=== PATIENT | male | born 1980 | race Caucasian/White ===

== ENCOUNTER 2021-07-03 20:11 | Emergency (ER) | payer SELFPAY ==
--- NOTE | ~2021-07-03 | XR_ITS ---
EXAMINATION: XR chest 1V portable DATE: 07/03/2021 21:47 INDICATION: Left chest pain. TECHNIQUE: A single frontal view of the chest was obtained. COMPARISON: None. FINDINGS: The chest demonstrates clear lungs without pneumonia, pleural effusion, or pneumothorax. Th e heart size is normal. IMPRESSION: 1. No acute cardiopulmonary disease. Reviewed, dictated and finalized at location A. NING ASSOCIATE
--- NOTE | ~2021-07-03 | CT_ITS ---
EXAMINATION: CT cervical spine wo con DATE: 07/03/2021 21:48 INDICATION: Left neck pain radiating to the arm. TECHNIQUE: Computed tomography (CT) of the cervical spine was performed without intravenous contrast. Automated exposure control and iterative reconstruction technique were employed. The dose-length pro duct was 507.44 mGy-cm. COMPARISON: None FINDINGS: There is 9 degrees levocurvature of cervicothoracic spine. There is kyphosis of lower cervi js spine. Vertebral body heights are normal. There is moderately decreased disc height at C4-C5 and C6-C7 and mildly decreased disc height at C5-C6. The following disc levels are specifically discussed : C2-C3: There is mild bilateral uncovertebral joint osteoarthritis. There is mild left facet joint ost eoarthritis. There is no neural foraminal stenosis. There is no central canal stenosis. C3-C4: There is mild bilateral uncovertebral joint osteoarthritis. There is no facet joint osteoarthr itis. There is no neural foraminal stenosis. There is mild central canal stenosis. C4-C5: There is moderate right and mild left uncovertebral joint osteoarthritis. There is mild bilate ral facet joint osteoarthritis. There is no neural foraminal stenosis. There is mild central canal st enosis. C5-C6: There is severe bilateral uncovertebral joint osteoarthritis. There is no facet joint osteoart hritis. There is mild right neural foraminal stenosis. There is mild central canal stenosis. C6-C7: There is no uncovertebral joint osteoarthritis. There is mild right facet joint osteoarthritis . There is no neural foraminal stenosis. There is mild central canal stenosis. C7-T1: There is no uncovertebral joint osteoarthritis. There is severe right and mild left facet join t osteoarthritis. There is no neural foraminal stenosis. There is no central canal stenosis. IMPRESSION: 1. No fracture. 2. Moderate cervical spondylosis. Reviewed, dictated and finalized at location A. LAR SENIOR CARE PROVIDER
[2021-07-03 20:20] VITALS: BP 174/146; PULSE 86; RESP 20; TEMP 36.2; O2SAT 98
--- NOTE | 2021-07-03 20:44 | ECG_ITS ---
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
[2021-07-03 21:06] LABS: Hematocrit 49.2 % (40.0-54.0); Hemoglobin 16.2 g/dL (14.0-18.0); Mean Corpuscular HGB Conc 32.9 g/dL (32.0-36.0); Mean Corpuscular Hemoglobin 29.3 pg (27.0-31.0); Mean Platelet Volume 10.1 fl (8.7-11.0); Platelet Count Result 328 K/mm3 (150-420); Red Blood Count 5.53 M/mm3 (4.70-6.10); Red Cell Distribution Width 13.4 % (11.6-14.4); White Blood Count 14.2 K/mm3 (4.8-10.8)
[2021-07-03] MEDS: cloNIDine HCL 0.2 MG TABLET PO ×2 (21:13→21:56)
[2021-07-03] MEDS: KETOROLAC (*BKC) 60 MG/2 ML VIAL IM (21:14)
[2021-07-03] MEDS: Please add drug allergy info to patient profile. 1 EACH XX (21:14)
[2021-07-03 21:16] LABS: Atypical Lymphocytes Present; Band Neutrophils Percent 0 % (0-6); Basophils Absolute Manual 0.14 K/mm3 (0-0.1); Basophils Percent Manual 1 % (0-1); Eosinophils Percent Manual 0 % (1-6); Lymphocytes Absolute Manual 5.25 K/mm3 (1.1-4.5); Lymphocytes Percent Manual 37 % (18-44); Monocytes Absolute Manual 0.42 K/mm3 (0.1-0.90); Monocytes Percent Manual 3 % (3-9); Neutrophils Absolute Manual 8.37 K/mm3 (1.3-6.7); Neutrophils Percent Manual 59 % (46-73); Platelet Estimate Adequate (Adequate); Total Cells Counted 100
[2021-07-03] MEDS: SODIUM CHLORIDE 0.9% IV 500 ML 999 ML IV CONT (21:16)
[2021-07-03 21:23] LABS: Alanine Aminotransferase 30 U/L (16-63); Alkaline Phosphatase 84 U/L (46-116); Anion Gap 14 mmol/L (8-16); Aspartate Amino Transferase 11 U/L (15-37); Bilirubin,Total 0.3 mg/dL (0.00-1.00); Blood Urea Nitrogen 17 mg/dL (7-18); Calcium 9.5 mg/dL (8.5-10.1); Carbon Dioxide 24 mmol/L (21-32); Chloride 100 mmol/L (98-108); Estimated Glomerular Filt Rate > 60; Glucose 119 mg/dL (70-99); Osmolality Calculated 288 mOsm/kg (285-295); Potassium 3.9 mmol/L (3.5-5.1); Sodium 138 mmol/L (136-145); Total Protein 8.1 g/dL (6.4-8.2); Troponin I 8.1 ng/L (0.00-60.4)
[2021-07-03 21:26] LABS: Lactic Acid Reflex 0.7 mmol/L (0.4-2.0)
--- NOTE | 2021-07-03 21:36 | PC.NURSE ---
Pt. to X-Ray at this time. Pt. reports some pain relife. Pt to X-ray via w/c.
--- NOTE | 2021-07-03 21:48 | ED.UPPEXIN ---
HPI - Extremity Injury (Upper) General Chief Complaint: Extremity Injury, Upper Stated Complaint: possible pinched nerve Time Seen by Provider: 07/03/21 20:15 Source: patient and RN notes reviewed Mode of arrival: ambulatory Limitations: no limitations History of Present Illness complaint: injury to: right and shoulder Other injuries: none Place: work Severity: moderate Severity scale (1-10): 8 Relieving factors: medication Exacerbating factors: movement of extremity Context: other (chronic neck to left shoulder pain x 1 mos, made worse by increased left upper limb activity x 3 days. ) Treatments prior to arrival: NSAIDS Related Data Home Medications Medication Instructions Recorded Confirmed No Home Medications 07/03/21 07/03/21 Allergies Allergy/AdvReac Type Severity Reaction Status Date / Time No Known Allergies Allergy Verified 07/03/21 21:08 Review of Systems Review of Systems: All systems reviewed & are unremarkable except as noted in HPI and below PMFSH Past Medical History Medical History Cervical radiculopathy, chronic Hypertension Exam Const: General: no acute distress and alert Orientation/consciousness: patient oriented x3 Limitations: no limitations HENMT: Head: normal to inspection Ears: external ears normal, TM's normal bilaterally and EAC's normal General nose exam: Normal external nose present and Normal nares present Face and sinus: normal facial exam and sinuses nontender Mouth: Yes lip normal and Yes moist mucous membranes Throat: posterior oropharynx normal Eyes: Conjunctivae: conjunctivae normal Pupils: Equal, round and reactive pupils present Neck: Neck: normal visual inspection and no lymphadenopathy Other: no acute neck tenderness. pt had pain on moving the left UL but had no acute left shoulder or left UL tenderness, redness or deformity. no acute neurovascular deficit. Chest: Chest palpation & inspection: normal inspection of the chest Resp: Effort & Inspection: normal respiratory effort Auscultation: clear to auscultation bilaterally Cardio: Rate: regular rate Rhythm: regular rhythm GI: GI Palp: Yes Soft to palpation and No Tenderness to palpation present (GI) Auscultation: normal bowel sounds : General: Yes bladder normal to palpation and Yes no CVA tenderness Male General Exam: Yes normal external exam Back/Spine/Pelvis: Back: no CVA tenderness Skin: General skin exam: normal color Rashes: no rashes Neuro: General: patient oriented x3, moves all extremities, no meningeal signs, no focal motor deficits and CN's II-XI intact bilaterally Extrem: General: normal to inspection and no pedal edema Psych: Mental Status: mental status grossly normal Affect: Anxious affect present Attitude: cooperative Thought content: Yes Normal thought content present Course Course Emergency Course: Pt had elevated BP which moderated with Rx. Stable with less pain. Reevaluation(s) Reevaluation #1: VS improved. Date: 07/03/21 Time: 21:11 Vital Signs Vital signs: Vital Signs Temperature 36.2 C L 07/03/21 20:20 Pulse Rate 86 07/03/21 20:20 Respiratory Rate 20 07/03/21 20:20 Blood Pressure 174/146 H 07/03/21 20:20 Pulse Oximetry 98 07/03/21 20:20 Temperature 36.6 C 07/03/21 23:17 Pulse Rate 76 07/03/21 23:17 Respiratory Rate 20 07/03/21 23:17 Blood Pressure 174/146 H 07/03/21 20:20 Pulse Oximetry 96 07/03/21 23:17 MDM - Extremity Injury (Upper) Differential Diagnosis Differential diagnosis: Likely other (neck radiculopathy) Medical Records Attestation: I reviewed the patient's medical records. Lab Data Attestation: I reviewed the patient's lab results. Result diagrams: 07/03/21 21:02 07/03/21 21:02 Labs: Lab Results 07/03/21 07/03/21 07/03/21 Range/Units 21:02 21:02 21:02 WBC 14.2 H (4.8-10.8) K/mm3 RBC 5.53 (4.70-6.1
--- NOTE | 2021-07-03 22:52 | PC.NURSE ---
Pt. reports some relife 4 on a 1-10 scale.
[2021-07-03 23:17] VITALS: PULSE 76; RESP 20; TEMP 36.6; O2SAT 96
== END 2021-07-03 23:20 | disposition home or self-care (01) ==
PROVIDERS: Emergency Provider Emergency Medicine; PCP Family Medicine
DX: M54.12 Radiculopathy, cervical region (principal); I10 Essential (primary) hypertension
CPT/HCPCS: 36415; 71045; 72125; 80053; 83605; 84484; 85025; 93005; 96361; 96374; 99284; A9270; J1885; J7040

== ENCOUNTER 2021-07-04 13:36 | Emergency (ER) | payer SELFPAY ==
[2021-07-04 15:17] VITALS: BP 191/110; PULSE 72; RESP 16; TEMP 35.9; O2SAT 100
--- NOTE | 2021-07-04 15:27 | ED.EXTPRO ---
HPI - Extremity Problem General Chief complaint: Extremity Problem,Nontraumatic Stated complaint: L Shoulder pain/numbness in L hand Time Seen by Provider: 07/04/21 15:27 Source: patient Mode of arrival: ambulatory Limitations: no limitations History of Present Illness HPI Narrative: this is a 30-year-old gentleman that presents with some neck pain and radiation into his left shoulder with some tender and muscular spasm left cervical neck area has good range of motion no known injury has no nausea vomiting no chest pain no shortness of breath no fever chills. Currently no headaches no blurry vision. MD Complaint: extremity pain Onset (ago): day(s) Pain Consistency: constant Location: left Severity scale (1-10): 8 Quality: aching Radiation: other ( Cervical neck pain) Relieving factors: immobilization and medication Exacerbating factors: range of motion Associated symptoms: denies other symptoms Related Data Allergies Allergy/AdvReac Type Severity Reaction Status Date / Time No Known Allergies Allergy Verified 07/04/21 15:21 Review of Systems Review of Systems: All systems reviewed & are unremarkable except as noted in HPI and below PMFSH Past Medical History Medical History Cervical radiculopathy, chronic Hypertension Exam Const: General: no acute distress and alert Orientation/consciousness: patient oriented x3 HENMT: Head: normal to inspection Eyes: Conjunctivae: conjunctivae normal Pupils: Equal, round and reactive pupils present Neck: Other: Tender left paracervical tenderness with palpation Chest: Chest palpation & inspection: normal inspection of the chest Resp: Effort & Inspection: normal respiratory effort Auscultation: clear to auscultation bilaterally Cardio: Rate: regular rate Rhythm: regular rhythm GI: GI Palp: Yes Soft to palpation Percussion: Yes normal to percussion : Testes: Testes normal Urinary Catheter: Urinary Catheter: patent and draining Back/Spine/Pelvis: Back: no CVA tenderness Skin: General skin exam: normal color Rashes: no rashes Neuro: General: patient oriented x3, moves all extremities, no meningeal signs and no focal motor deficits Extrem: General: normal to inspection and no pedal edema Psych: Mental Status: mental status grossly normal Affect: normal affect Course Course Emergency Course: patient received IM Toradol along with some IM morphine a drain, blood pressure is elevated 191/110 will give the patient a dose of clonidine. Vital Signs Vital signs: Vital Signs Temperature 35.9 C L 07/04/21 15:17 Pulse Rate 72 07/04/21 15:17 Respiratory Rate 16 07/04/21 15:17 Blood Pressure 191/110 H 07/04/21 15:17 Pulse Oximetry 100 07/04/21 15:17 Temperature 35.9 C L 07/04/21 15:17 Pulse Rate 72 07/04/21 15:17 Respiratory Rate 16 07/04/21 15:17 Blood Pressure 191/110 H 07/04/21 15:17 Pulse Oximetry 100 07/04/21 15:17 Critical Care Time Critical Care Time Critical Care Time: No Discharge Plan Discharge Clinical Impression: Cervical radiculopathy, chronic Hypertension Qualifiers: Hypertension type: primary hypertension Qualified Code(s): I10 - Essential (primary) hypertension Patient Disposition: Home, Self-Care Condition: Stable Instructions: Antibiotic Form, Chronic Hypertension (ED), Cervical Radiculopathy (ED) Additional Instructions: take medicine as prescribed and follow-up with primary care physician for possible MRI of cervical spine. Prescriptions: New cyclobenzaprine 10 mg tablet 10 mg PO TID PRN (Reason: muscle spasm) Qty: 20 RF: 0 tramadol [Ultram] 50 mg tablet 50 mg PO Q6H PRN (Reason: pain) Qty: 20 RF: 0 No Action clonidine HCl 0.2 mg tablet 0.2 mg PO BID Qty: 20 RF: 0 ibuprofen 800 mg tablet 800 mg PO TID PRN (Reason: pain) Qty: 30 RF: 0 omeprazole magnesium [Prilosec OTC] 20 mg tablet,delayed rel
[2021-07-04] MEDS: ORPHENADRINE CITRATE 100 MG TABLET.ER PO (15:49)
[2021-07-04] MEDS: KETOROLAC (*BKC) 60 MG/2 ML VIAL IM (15:49)
[2021-07-04] MEDS: cloNIDine HCL 0.1 MG TABLET PO (15:49)
[2021-07-04 16:18] VITALS: BP 156/85; PULSE 78; RESP 20; TEMP 36.1; O2SAT 97
== END 2021-07-04 16:22 | disposition home or self-care (01) ==
PROVIDERS: Emergency Provider Emergency Medicine; PCP Family Medicine
DX: M54.12 Radiculopathy, cervical region (principal); I10 Essential (primary) hypertension
CPT/HCPCS: 96372; 99283; A9270; J1885

== ENCOUNTER 2024-09-14 13:06 | Emergency (ER) | payer BC, SELFPAY ==
--- NOTE | ~2024-09-14 | XR_ITS ---
XR chest 2V Ordering provider: French Matute MD History: 43 years Male with . INTERMITTENT CP X 2 WKS . Comparison: July 03, 2021 FINDINGS: MEDIASTINUM: The cardiac silhouette is not enlarged. LUNGS: No infiltrates, effusions or pneumothorax. OTHER: No free air under the diaphragm. Degenerative changes of the spine. IMPRESSION: No acute cardiopulmonary pathology. Reviewed, dictated and finalized at location A.
--- NOTE | 2024-09-14 13:07 | ECG_ITS ---
Test Date: 2024-09-14 13:20:18 Measurements Intervals [place] Rate: 75 P: 44 NE: 169 QRS: 35 QRSD: 121 T: 50 QT: 368 QTc: 412 Interpretive Statements SINUS RHYTHM INCOMPLETE RIGHT BUNDLE BRANCH BLOCK BORDERLINE ECG No previous ECG available for comparison Electronically Signed On 09-14-2024 13:23:15 CDT by Jimenez William D.O.
[2024-09-14 13:17] VITALS: BP 177/80; PULSE 77; RESP 18; TEMP 36.6; O2SAT 99
[2024-09-14 13:30] LABS: Basophils Absolute Auto 0.1 K/mm3 (0.0-0.1); Basophils Percent Auto 0.7 % (0.2-1.2); Eosinophils Absolute Auto 0.2 K/mm3 (0-0.3); Eosinophils Percent Auto 1.9 % (0-4.4); Hematocrit 44.3 % (42.0-52.0); Hemoglobin 14.4 g/dL (14.0-18.0); Immature Granulocyte Absolute 0.04 K/mm3 (0.00-0.031); Immature Granulocyte Percent A 0.3 % (0-0.5); Lymphocytes Absolute Auto 2.88 K/mm3 (0.9-3.2); Lymphocytes Percent Auto 24.6 % (18.3-44.2); Mean Corpuscular HGB Conc 32.5 g/dl (32-36); Mean Corpuscular Hemoglobin 28.6 pg (26-34); Mean Corpuscular Volume 87.9 fl (80-100); Monocytes Absolute Auto 0.8 K/mm3 (0.1-0.6); Monocytes Percent Auto 6.5 % (2.6-8.5); Neutrophils Absolute Auto 7.7 K/mm3 (1.3-6.7); Platelet Count Result 291 k/mm3 (150-375); Red Blood Count 5.04 M/mm3 (4.6-6.20); Red Cell Distribution Width 13.2 % (11.5-14.5); White Blood Count 11.7 K/mm3 (4.5-10.0)
[2024-09-14 13:39] LABS: INR 0.9; Prothrombin Time 12.7 Seconds (11.1-14.7)
[2024-09-14 13:41] LABS: Partial Thromboplastin Time 25.4 Seconds (22.3-36.8)
[2024-09-14 13:44] LABS: Alanine Aminotransferase 45 U/L (6-50); Albumin Level 4.5 g/dL (3.5-5.1); Alkaline Phosphatase 105 U/L (38-126); Anion Gap 7 mmol/L (4-12); Aspartate Amino Transferase 36 U/L (17-59); Bilirubin,Total 0.5 mg/dL (0.2-1.3); Blood Urea Nitrogen 17 mg/dL (9-20); Carbon Dioxide 28 mmol/L (22-30); Chloride 101 mmol/L (98-107); Estimated CRCL calculation 156 ml/min; Estimated Glomerular Filt Rate > 60; Glucose 160 mg/dL (65-110); Lipase 33 U/L (23-300); Potassium 4.3 mmol/L (3.4-5.0); Sodium 136 mmol/L (137-145)
[2024-09-14 13:55] LABS: Troponin I < 0.012 ng/mL (0.000-0.034)
[2024-09-14 14:19] VITALS: BP 140/83; PULSE 86; RESP 18; O2SAT 100; O2SAT 99
[2024-09-14] MEDS: ASPIRIN 81 MG CHEWABLE TABLET 324 MG PO (14:47)
--- NOTE | 2024-09-14 14:50 | PC.NURSE ---
Patient states he has history of anxiety and states he is prescribed buspar to take daily, but has not been taking it as ordered.
--- NOTE | 2024-09-14 15:15 | PC.NURSE ---
Patient ambulated to the restroom with steady gate
--- NOTE | 2024-09-14 15:50 | ED.CHESTPAIN ---
HPI - Chest Pain General Chief Complaint: Chest Pain Stated Complaint: CP Time Seen by Provider: 09/14/24 14:47 History of Present Illness HPI narrative: 43-year-old male presenting to the emergency room with chief complaint of intermittent chest pain. He states he has severe anxiety and general anxiety I disorder, started on BuSpar recently by his primary care provider for this. Patient states that he intermittently gets chest pains and left side of his chest that radiated towards his arm. Family history of coronary disease in his father but no personal disease history. He has a history of hypertension as well. Was otherwise in his normal state of health, no associated shortness of breath, nausea vomiting, abdominal discomfort, neuropathy or weakness. Patient is very anxious in triage and pacing around the room. Related Data Allergies Allergy/AdvReac Type Severity Reaction Status Date / Time No Known Allergies Allergy Verified 09/14/24 14:46 Review of Systems Review of Systems: As [facility] Past Medical History Medical History Hypertension Cervical radiculopathy, chronic Exam Narrative: GENERAL: Well-appearing and not in any acute distress but is anxious and pacing in the room, fidgets quite a bit HEAD: [Normocephalic, atraumatic.] EYES: [PERRLA and EOMI.] ENT: Nares clear, no rhinorrhea or epistaxis. Mucous membranes moist. NECK: Supple. CHEST: [Clear to auscultation. No respiratory distress.] HEART: [Regular rate and rhythm]. No murmur heard. [Normal peripheral pulses.] ABDOMEN: [Soft, nondistended], [nontender], [No rigidity or guarding] EXTREMITIES: Normal range of motion. [No edema.] SKIN: Warm, dry, no rash. NEURO: [No focal deficits]. Alert and oriented [x3.] PSYCH: Fidgeting frequently throughout the examination, anxious and pacing in the room but not any acute distress or psychological decompensation Course Vital Signs Vital signs: Vital Signs Temperature 36.6 C 09/14/24 13:17 Pulse Rate 77 09/14/24 13:17 Respiratory Rate 18 09/14/24 13:17 Blood Pressure 177/80 H 09/14/24 13:17 Pulse Oximetry 99 09/14/24 13:17 Oxygen Delivery Room Air 09/14/24 13:17 Temperature 36.6 C 09/14/24 13:17 Pulse Rate 86 09/14/24 14:19 Respiratory Rate 18 09/14/24 14:19 Blood Pressure 140/83 09/14/24 14:19 Pulse Oximetry 99 09/14/24 14:19 Oxygen Delivery Room Air 09/14/24 14:19 MDM - Chest Pain MDM Narrative Medical decision making narrative: 43-year-old male with history of hypertension generalized anxiety disorder he presents with intermittent chest pain for about 1 week. He states that pain comes and goes without any precipitating factors, somewhat radiates towards his arm. He states he feels like his related to his anxiety. Recently started BuSpar by his primary care provider but has not had any effects yet according to him. Blood pressure in triage was mildly elevated but normalized in the room. No significant blood pressure concerns here is no tachycardia, fever, hypoxia. Normal clear breath sounds and strong symmetric pulses. No murmurs auscultated. He otherwise appears well but is anxious and frequently pacing around the room and not able to sit still. Denies any allergies or drug use. Suspicion presently is for potential anxiety induced chest discomfort, musculoskeletal chest pain, ACS on the differential but less likely and he has low heart score. Serial troponins were ordered, EKG, chest x-ray, BMP, CBC. Patient placed on satellite project site monitor and was re-evaluated. No current chest pain on my assessment. Workup shows a minor leukocytosis 11.7 but nonspecific. No anemia or platelet concerns. Normal electrolytes. Normal PT and PTT. Unremarkable LFTs, normal glucose and renal function. Negative initial troponin and 3 hour troponin. Negative lipase. Chest x-ray shows no acute cardiopulmonary disease. EKG shows sinus rhythm, no ST segment elevations, depressions or inversions. Incomplete right bundle-branch block seen and similar to prior EKG. Serial troponin is negative. He is stable for discharge home at this time for outpatient risk stratification with his primary care provider and referred to Cardiology. Medical Records Data Attestation: I reviewed the patient's medical records. Lab Data Attestation: I reviewed the patient's lab results. 09/14/24 13:24 09/14/24 13:24 Labs: Lab Results 09/14/24 09/14/24 Range/Units 13:24 15:48 WBC 11.7 H (4.5-10.0) K/mm3 RBC 5.04 (4.6-6.20) M/mm3 Hgb 14.4 (14.0-18.0) g/dL Hct 44.3 (42.0-52.0) % MCV 87.9 (80-100) fl MCH 28.6 (26-34) pg MCHC 32.5 (32-36) g/dl RDW 13.2 (11.5-14.5) % Plt Count 291 (150-375) k/mm3 MPV 10.0 (7.4-10.4) fl Immature Gran % (Auto) 0.3 (0-0.5) % Neut % (Auto) 66.0 (45.5-73.1) % Lymph % (Auto) 24.6 (18.3-44.2) % [place] % (Auto) 6.5 (2.6-8.5) % Eos % (Auto) 1.9 (0-4.4) % Baso % (Auto) 0.7 (0.2-1.2) % Lymph # (Auto) 2.88 (0.9-3.2) K/mm3 [place] # (Auto) 0.8 H (0.1-0.6) K/mm3 Eos # (Auto) 0.2 (0-0.3) K/mm3 Baso # (Auto) 0.1 (0.0-0.1) K/mm3 Abs Immat Gran (auto) 0.04 H (0.00-0.031) K/mm3 Absolute Neuts (auto) 7.7 H (1.3-6.7) K/mm3 Absolute Nucleated RBC 0.000 (0.0-0.012) K/mm3 Nucleated RBC % 0.0 (0.0-0.2) % PT 12.7 (11.1-14.7) Seconds INR 0.9 APTT 25.4 (22.3-36.8) Seconds Sodium 136 L (137-145) mmol/L Potassium 4.3 (3.4-5.0) mmol/L Chloride 101 (98-107) mmol/L Carbon Dioxide 28 (22-30) mmol/L Anion Gap 7 (4-12) mmol/L BUN 17 (9-20) mg/dL Creatinine 0.59 L (0.7-1.3) mg/dL Estim Creat Clear Calc 156 ml/min Estimated GFR > 60 (59 - ) Glucose 160 H (65-110) mg/dL Calcium 10.0 (8.4-10.2) mg/dL Total Bilirubin 0.5 (0.2-1.3) mg/dL AST 36 (17-59) U/L ALT 45 (6-50) U/L Alkaline Phosphatase 105 (38-126) U/L Troponin I < 0.012 < 0.012 (0.000-0.034) ng/mL Total Protein 8.0 (6.3-8.2) g/dL Albumin 4.5 (3.5-5.1) g/dL Lipase 33 (23-300) U/L Imaging Data Attestation: I personally reviewed and interpreted this imaging study as follows: My impression: Impressions Chest X-Ray 09/14/24 13:41 IMPRESSION: No acute cardiopulmonary pathology. ECG Data EKG #1: Attestation: I personally reviewed and interpreted this ECG as follows: ECG completion date: 09/14/24 ECG completion time: 13:20 Prior ECG tracings: not available for review Interpretation: No ST segment elevations, depressions or inversions. Right bundle-branch block incomplete. Rate of 75 beats per minute, QTC 411, IA 169, QRS 121. Final interpretation sinus rhythm with incomplete right bundle branch block. Discharge Plan Discharge Clinical Impression: Chest pain Patient Disposition: Home Condition: Stable Instructions: Antibiotic Form, Chest Pain (ED) Additional Instructions: Your cardiac enzymes are undetectable here. Your laboratory studies are otherwise reassuring. Follow-up with your regular primary care provider for further evaluation and will refer you to a admitting office escort if this is a persistent concern. Return with any new or worsening concerns at any time. Patient Language: Prydeinig Prescriptions: No Action clonidine HCl 0.2 mg tablet 0.2 mg PO BID Qty: 20 0RF ibuprofen 800 mg tablet 800 mg PO TID PRN (Reason: pain) Qty: 30 0RF omeprazole magnesium [Prilosec OTC] 20 mg tablet,delayed release (DR/EC) 20 mg PO BID Qty: 20 0RF tramadol 50 mg tablet 50 mg PO BID PRN (Reason: pain) Qty: 6 0RF cyclobenzaprine 10 mg tablet 10 mg PO TID PRN (Reason: muscle spasm) Qty: 20 0RF tramadol [Ultram] 50 mg tablet 50 mg PO Q6H PRN (Reason: pain) Qty: 20 0RF Follow-up/Referrals: Jimenez William DO [Physician] - 1 Week (Chest pain) Catrina Ortiz MD [Physician] - 1 Week (chest pain) UNKNOWN,DOCTOR [Primary Care Provider] - Time of Disposition: 16:34 Quality HEART score for chest pain patients History: slightly suspicious ECG: non specific repolarization disturbance/LBTB/PM Age: < or = to 45 years Risk factors: 1 or 2 risk factors Troponin: < or = to 1x normal limit Heart score: 2
--- NOTE | 2024-09-14 15:59 | PC.NURSE ---
Patient took himself off the monitor and got himself dressed.
[2024-09-14 16:16] LABS: Troponin I < 0.012 ng/mL (0.000-0.034)
--- OUTSIDE RECORDS SUMMARY | 2024-09-14 17:03 | XMS_ITS | Clinical Summary ---
Author Organization [facility] Address [address] [place] [address] Phone Care Team Providers Care Volunteer Recruiter Name Role Phone Provider, None Primary Care Provider Unavailabl e Allergies No known active allergies Medications HYDROcodone-carmela taminophen (NORCO) 5-325 MG TabletIndicatio ns:Dental infection Take 1 Tablet by mouth every 6 hours as needed for Moderate or more severe pain. 12 Tablet 05/16/2024 Active Social History Tobacco Use Types Packs/Day Years Used Date Smoking Tobacco: Every Day Cigarettes Smokeless Tobacco: Never Tobacco Cessation:Ready to Q uit: Not Asked; Counseling Given: Not Answered Alcohol Use Standard Drinks/Week Comments Never 0 (1 standard drink = 0.6 oz pur e alcohol) Sex and Gender Information Value Date Recorded Sex Assigned at Not on file Legal Sex Male 9:43 PM CDT Gender Identity Not on file Sexual Orientation Not on file Last Filed Vital Signs Vital Sign Reading Time Taken Comments Blood Pressure 162/80 05/16/2024 6:52 PM [facility] Pulse 91 05/16/2024 6:52 PM [employer] Temperature 36.7 C (98.1 F) 05/16/2024 6:52 PM [employer] [employer] Respiratory Rate 18 05/16/2024 6:52 PM [employer] [employer] Oxygen Saturation 98% 05/16/2024 6:52 PM [employer] Inhaled Oxygen Concentration - - Weight 117.9 kg (260 lb) 05/16/2024 6:52 PM [facility] Height 172.7 cm (5' 8 ) 05/16/2024 6:52 PM [employer] [employer] Body Mass Index 39.53 05/16/2024 6:52 PM [facility] Plan of Treatment Not on file Care Teams Volunteer Recruiter Relationship Specialty Start Date End Date Provider, None [place] PCP - General 05/16/24
--- OUTSIDE RECORDS SUMMARY | 2024-09-14 17:04 | XMS_ITS | Encounter Summary ---
Author Organization [facility] Healthcare Address [address] [place] [address] Care Team Providers Care It Infrastructure Consultant Name Role Phone Tong Monae MD Unavailable [phone] Adriel Shetty MD Unavailable [phone] Sydney Galeana MD Primary Care Provider [phone] Reason for Visit * Reason Comments Chest Pain Encounter Details Date Type Department Care Team (Late st Contact Info) Description 09/12/2024 6:55 PM CDT - 09/12/2024 7:41 PM CDT Emergency [facility] Emergency Department [address] [place] [address] Higinio Setiner MD [address] [address] Panic attack (Primary Dx) Discharge Disposition: Discharge to home or self care Social History Tobacco Use Types Packs/Day Years Used Date Smoking Tobacco: Every Day Cigarettes 0.7 30.3 Started: 1994 Smokeless Tobacco: Never AUDIT-C Answer Date Recorded Q1: How often do you have a drink containing alcohol? Never 08/11/2024 Q2: How many drinks containi ng alcohol do you have on a typical day when you are drinking? Patient does not drink Q3: How often do you have si x or more drinks on one occasion? Never 08/11/2024 PHQ-2 Answer Date Recorded PHQ-2 Total Score (If total score is 3 or more points, staff should administer the PHQ-9) 0 08/11/2024 Personal Safety Answer Date Recorded Have you ever been in or are you currently in a harmful physical or emotional relationship or is someone making you feel afraid or unsafe? 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[employer] Gender Identity Not on file Sexual Orientation Not on file documented as of this encounter Last Filed Vital Signs Vital Sign Reading Time Taken Comments Blood Pressure 149/79 09/12/2024 4:43 PM CDT Pulse 75 09/12/2024 7:11 PM CDT Temperature 36.6 C (97.9 F) 09/12/2024 4:43 PM CDT Respiratory Rate 18 09/12/2024 7:09 PM CDT Oxygen Saturation 100% 09/12/2024 7:09 PM CDT Inhaled Oxygen Concentration - - Weight 106.1 kg (234 lb) 09/12/2024 4:43 PM CDT Height - - Body Mass Index 35.59 08/11/2024 9:59 AM CDT documented in this encounter Discharge Instructions * Discharge Instructions* Saurav Lux MD - 09/12/2024 7:26 PM CDT If you have worsening chest pain, shortness of breath, fever, chills, dizziness, nausea, or vomiting, can return to ED * Attachments The following attachments cannot be sent through Care Everywhere. * Panic Attack (Eritrean) documented in this encounter Medications at Time of Discharge busPIRone (BUSPAR) 7.5 mg tabletIndications :Generalized Anxiety Disorder Take 1 tablet (7.5 mg total) by mouth 2 (two) times a day 60 tablet 09/12/2024 cyanocobalamin (Vitamin B-12) 100 mcg tabletIndications :Prevention of Vitamin B12 Deficiency Take 1 tablet (100 mcg total) by mouth daily hydrOXYzine (ATARAX) 25 mg tabletIndications :anxiety Take 1 tablet (25 mg total) by mouth 4 (four) times a day as needed for anxiety 24 tablet 08/08/2024 melatonin 10 mg tablet Take 1 tablet (10 mg total) by mouth nightly as needed pyridoxine (VITAMIN B-6) 50 mg tablet Take 1 tablet (50 mg total) by mouth daily sertraline (ZOLOFT) 25 mg tabletIndications :Generalized Anxiety Disorder Take 2 tablets (50 mg total) by mouth daily 60 tablet 1 08/11/2024 10/10/2024 documented as of this encounter Ordered Prescriptions Prescription Sig Dispense Quantity Refills Last Filled Start Date End Date busPIRone (BUSPAR) 7.5 mg tabletIndications:G eneralized Anxiety Disorder Take 1 tablet (7.5 mg total) by mouth 2 (two) times a day 60 tablet 09/12/2024 documented in this encounter Discharge Disposition Disposition Code Departure Means Destination Comment s Discharge to home or self care documented in this encounter ED Notes * Saurav Lux MD - 09/12/2024 7:13 PM CDT HPI Chief Complaint Patient presents with Chest Pain Kayden Méndez is a 43 y/o male w/ a hx of anxiety and HTN who presents with chest tightness for 3 days. He reports L sided chest tightness that occurs every 1-2 hrs and lasts for several minutes. He has associated palpitations, shortness of breath, and the sensation of his throat closing. He also feels anxious at the same time and feels like he is going to . The pain sometimes occurs with exertion but can be triggered by certain movements and lying down. He reports recently starting sertralinefor anxiety about 2 weeks ago but reports that he felt slowed while taking it. He has stopped taking the sertraline. He also notes a hx of anxiety attacks and he thinks he may have had chest pain with those previous episodes. He denies fever, chills, headache, dizziness, nausea, vomiting, abdominal pain, diarrhea, constipation, or dysuria. Patient History: Patient Active Problem List Diagnosis Date Noted Generalized anxiety disorder 08/11/2024 Tobacco use 08/11/2024 Hypertension 08/08/2024 Acute chest pain 08/07/2024 No past medical history on file. No past surgical history on file. No family history on file. Social History Tobacco Use Smoking status: Every Day Current packs/day: 0.75 Average packs/day: 0.7 packs/day for 30.3 years (22.7 ttl pk-yrs) Types: Cigarettes Start date: 1994 Smokeless tobacco: Never Substance and Sexual Activity Alcohol use: Not on file Drug use: Not on file Sexual activity: Not on file Social History Social History Narrative Not on file Review of Systems Review of Systems Constitutional: Negative for chills and fever. Respiratory: Positive for shortness of breath. Negative for cough and wheezing. Cardiovascular: Positive for chest pain and palpitations. Gastrointestinal: Negative for abdominal pain, constipation, diarrhea, nausea and vomiting. Genitourinary: Negative for dysuria. Neurological: Negative for dizziness and headaches. All other systems reviewed and are negative. Physical Exam ED Triage Vitals Temp Pulse Resp BP SpO2 09/12/24 1643 09/12/24 1643 09/12/24 1643 09/12/24 1643 09/12/24 1643 36.6 ??C (97.9 ??F) 85 16 149/79 100 % Temp src Heart Rate Source Patient Position BP Location FiO2 (%) -- 09/12/24 1909 -- -- -- Monitor Height Height Method Weight Weight Method -- -- 09/12/24 1643 -- 106.1 kg (234 lb) Physical Exam Vitals and nursing note reviewed. Constitutional: General: He is not in acute distress. Appearance: He is obese. He is not ill-appearing. HENT: Head: Normocephalic and atraumatic. Neck: Thyroid: No thyromegaly. Trachea: No tracheal deviation. Cardiovascular: Rate and Rhythm: Normal rate and regular rhythm. Pulses: Radial pulses are 2+ on the right side and 2+ on the left side. Heart sounds: Normal heart sounds. Pulmonary: Effort: Pulmonary effort is normal. Breath sounds: Normal breath sounds. Chest: Chest wall: Tenderness present. Abdominal: General: Bowel sounds are normal. Palpations: Abdomen is soft. Tenderness: There is no abdominal tenderness. Lymphadenopathy: Cervical: No cervical adenopathy. Skin: General: Skin is warm and dry. Coloration: Skin is not pale. Neurological: Mental Status: He is alert and oriented to person, place, and time. Psychiatric: Mood and Affect: Mood normal. Behavior: Behavior normal. MDM Medical Decision Making 43 y/o male w/ PMH of HTN and THOMAS who presents with 3 days of chest pain/tightness. Associated withpalpitations, SOB, anxiety, and feeling like he is going to . Very likely due to panic attack. He took sertraline for 2 weeks for anxiety before discontinuing due to feeling slowed . He is agreeable to trying a new medication for anxiety. Troponins negative. EKG shows NSR. CXR is normal. Plan: - Prescribing Buspar 7.5 mg BID - Recommended following up with PCP Amount and/or Complexity of Data Reviewed Radiology: ordered. ECG/medicine tests: ordered. Decision-making details documented in ED Course. Risk Prescription drug management. Attending Summary of Care ED Course as of 09/12/241912 Time: 09/12 1858 Value: ECG 12 lead Comment: (Reviewed) By: Saurav Lux MD No diagnosis found. Saurav Lux MD 09/12/241935 Cosigned by Higinio Steiner MD at 09/12/2024 7:56 PM CDT * Dolly Quintanilla RN - 09/12/2024 4:42 PM CDT Pt arrives to ED via POV c/o chest pain x 3 days. Pt states it feels like tightness. Pt denies cardiac hx. Pt states he was put on sertraline for anxiety 2 weeks ago and decided to stop it. Pt states I feel anxious. documented in this encounter Miscellaneous Notes * ED Re-evaluation Note - Higinio Steiner MD - 09/12/2024 7:41 PM CDT ED Re-evaluation I personally saw and examined the patient and discussed the case with the resident. I have reviewedthe resident's note and agree with the content and plan as written. Higinio Steiner MD 09/12/241954 documented in this encounter Plan of Treatment Not on file documented as of this encounter Procedures Procedure Name Priority Date/Time Associated Diagnosis Comments TROPONIN T HIGH-SENSITIVITY 2-HOUR Timed 09/12/2024 7:07 PM CDT TROPONIN T HIGH-SENSITIVITY SERIES (BASELINE, 2HR, 4HR, 6HR) STAT 09/12/2024 5:20 PM CDT EGFR STAT 09/12/2024 5:20 PM CDT DIFFERENTIAL AUTO STAT 09/12/2024 5:2 0 PM CDT CBC WITH AUTO DIFFERENTIAL STAT 09/12/2024 5:20 PM CDT COMPREHENSIVE METABOLIC PANEL STAT 09/12/2024 5:20 PM CDT XR CHEST 1 VIEW ED 09/12/2024 4:55 PM CDT ECG 12-LEAD STAT 09/12/2024 4:41 PM CDT documented in this encounter Results * Troponin T high-sensitivity 2-hour (09/12/2024 7:07 PM CDT) Trop T hs 8 <=22 ng/L Comment: Interpretive Data For further hscTnT resources including the diagnostic algorithm and an aid in interpretation, copy and paste this link: https://nrl.testcatalog.org/show/hsTrop Current Interpretive Data last revised 2020. Trop T hs delta 0 ng/L [facility] ([facility]) Trop T hs interp Insignificant [facility] ([facility]) Blood 09/12/2024 7:07 PM CDT 09/12/2024 7:09 PM CDT Higinio Steiner MD LAB BLOOD ORDERABLES Final Res ult Performing Organization Address City/[facility]/ZIP Co de Phone Number [facility] ([place]) 1 [facility] [place] [employer] [place] [address] * eGFR (09/12/2024 5:20 PM CDT) eGFR >90 >=60 mL/min/1. 73 m2 Comment: Interpretive Data Reference Interval Normal >/= 90 mL/min/1.73m2 Mildly decreased* 60 - 89 mL/min/1.73m2 Mildly to moderately decreased 45 - 59 mL/min/1.73m2 Moderately to severely decreased 30 - 44 mL/min/1.73m2 Severely decreased 15 - 29 mL/min/1.73m2 Kidney Failure < 15 mL/min/1.73m2 *Relative to young adult level Estimated glomerular filtration rate is determined by the 2020 CKD-EPI equation recommended by the National Kidney Foundation (A Unifying Approach to GFR Estimation: Recommendations of the NKF-ASK Task Force on Reassessing the Inclusion of Race in Diagnosing Kidney Disease, JASN 2020). The CKD-EPI equation should not be used for patients with unstable renal function and has not been validated in children and those over 70. Current interpretive data was last reviewed 2021. Blood 09/12/2024 5:20 PM CDT 09/12/2024 5:23 PM CDT Higinio Steiner MD LAB BLOOD ORDERABLES Final Res ult [facility] ([place]) 1 [facility] [place] [address] * (ABNORMAL) Differential, auto (09/12/2024 5:20 PM CDT) Neutrophil abs 7.74(H) 1.50 - 6.50 K/cumm Imm gran abs 0.03 0.00 - 0.10 K/cumm [facility] ([facility]) Lymphocyte abs 2.79 0.80 - 3.30 K/cumm [facility] ([facility]) Monocyte abs 0.79 0.20 - 0.80 K/cumm [facility] ([facility]) Eosinophil abs 0.14 0.00 - 0.50 K/cumm [facility] ([facility]) Basophil abs 0.06 0.00 - 0.10 K/cumm [facility] ([facility]) Neutrophil pct 67.0 % [facility] ([facility]) Comment: Interpretive Data Percent cell count reference ranges are not reported, since discordance with absolute values may lead to misinterpretation of CBC data. Current Interpretive Data was last revised on 2017. Imm gran pct 0.3 % [facility] ([facility]) Comment: Interpretive Data Percent cell count reference ranges are not reported, since discordance with absolute values may lead to misinterpretation of CBC data. Current Interpretive Data was last revised on 2017. Lymphocyte pct 24.2 % [facility] ([facility]) Comment: Interpretive Data Percent cell count reference ranges are not reported, since discordance with absolute values may lead to misinterpretation of CBC data. Current Interpretive Data was last revised on 2017. Monocyte pct 6.8 % [facility] ([facility]) Comment: Interpretive Data Percent cell count reference ranges are not reported, since discordance with absolute values may lead to misinterpretation of CBC data. Current Interpretive Data was last revised on 2017. Eosinophil pct 1.2 % [facility] ([facility]) Comment: Interpretive Data Percent cell count reference ranges are not reported, since discordance with absolute values may lead to misinterpretation of CBC data. Current Interpretive Data was last revised on 2017. Basophil pct 0.5 % [facility] ([facility]) Comment: Interpretive Data Percent cell count reference ranges are not reported, since discordance with absolute values may lead to misinterpretation of CBC data. Current Interpretive Data was last revised on 2017. Blood 09/12/2024 5:20 PM CDT 09/12/2024 5:23 PM CDT us Higinio Steiner MD LAB BLOOD ORDERABLES Final Res ult [facility] ([place]) 1 [facility] Department [place] [address] * Troponin T high-sensitivity series (baseline, 2hr, 4hr, 6hr) (09/12/2024 5:20 PM CDT) Pathologist [facility] Trop T hs 8 <=22 ng/L Comment: Interpretive Data For further hscTnT resources including the diagnostic algorithm and an aid in interpretation, copy and paste this link: https://nrl.testcatalog.org/show/hsTrop Current Interpretive Data last revised 2020. Blood 09/12/2024 5:20 PM CDT 09/12/2024 5:23 PM CDT us Higinio Steiner MD LAB BLOOD ORDERABLES Final Res ult [facility]) 1 [facility] [place] [address] * (ABNORMAL) Comprehensive metabolic panel (09/12/2024 5:20 PM CDT) [facility] Sodium 135 135 - 145 mmol/L Potassium, pl 4.2 3.3 - 4.9 mmol/L [facility] ([place]) Chloride 100 97 - 110 mmol/L [facility] ([place]) CO2 23 22 - 32 mmol/L [facility] ([place]) Anion gap 12 2 - 15 mmol/L [facility] ([facility]) BUN 11 6 - 25 mg/dL [facility] ([place]) Creatinine 0.54(L) 0.80 - 1.30 mg/dL [facility] ([place]) Glucose 118 70 - 199 mg/dL [facility] ([place]) Comment: Interpretive Data Fasting glucose >/= 126 mg/dl is diagnostic for diabetes. Fasting is defined as no caloric intake for at least 8 hours. Fasting glucose between 100 mg/dl to 125 mg/dl is diagnostic of prediabetes. In a patient with classic symptoms of hyperglycemia or hyperglycemic crisis, a random glucose >/= 200 mg/dl is diagnostic for diabetes. In the absence of unequivocal hyperglycemia, results should be confirmed by repeat testing. The classification and Diagnosis of Diabetes Diabetes Care 202; 46: S19-S40. Current interpretive data was last revised 2022. Calcium 10.1 8.5 - 10.3 mg/dL [facility] ([facility]) Bilirubin, total 0.2 0.1 - 1.2 mg/dL [facility] ([facility]) Protein, pl 7.6 6.5 - 8.5 g/dL [facility] ([facility]) Albumin 4.4 3.5 - 5.0 g/dL [facility] ([facility]) Alk phos 100 40 - 130 Units/L [facility] ([facility]) ALT 39 7 - 55 Units/L [facility] ([facility]) AST 29 10 - 50 Units/L [facility] ([facility]) Comment:Slightly Hemolyzed S pecimen Blood 09/12/2024 5:20 PM CDT 09/12/2024 5:23 PM CDT us Higinio Steiner MD LAB BLOOD ORDERABLES Final Res ult [facility] ([place]) 1 [facility] Department [place] [address] * (ABNORMAL) CBC with auto differential (09/12/2024 5:20 PM CDT) WBC 11.55(H) 3.80 - 9.90 K/cumm Hgb 14.9 13.0 - 17.5 g/dL [facility] ([facility]) Hct 44.0 38.9 - 50.3 % [facility] ([facility]) Plt 292 150 - 400 K/cumm [facility] ([facility]) MPV 10.0 9.1 - 12.3 fL [facility] ([facility]) RBC 5.09 4.30 - 5.80 M/cumm [facility] ([facility]) MCV 86.4 81.3 - 96.4 fL [facility] ([facility]) MCH 29.3 27.1 - 33.3 pg [facility] ([facility]) MCHC 33.9 32.3 - 35.7 g/dL [facility] ([facility]) RDW CV 13.2 11.1 - 14.9 % [facility] ([facility]) RDW SD 41.1 35.7 - 48.1 fL [facility] ([place]) NRBC abs 0.00 0.00 - 0.01 K/cumm [facility] ([place]) Blood Venous blood specimen / Unknown 09/12/2024 5:20 PM CDT 09/12/2024 5:23 PM CDT us Higinio Steiner MD LAB BLOOD ORDERABLES Final Res ult [facility] ([place]) 1 [facility] Department [place] [address] * XR Chest 1 Vw Portable (if patient condition/safety warrant portable) (09/12/2024 4:55 PM CDT) Anatomical Region Laterality Modality Body, Chest N/A Computed Radiogr aphy 09/12/2024 5:30 PM CDT Narrative 09/12/2024 5:30 PM CDT EXAM DESCRIPTION: XR CHEST 1 VIEW REASON FOR STUDY: chest pain c/o chest pain x 3 days. Pt states it feels like tightness. Pt denies cardiac hx. Pt states he was put on sertraline for anxiety 2 weeks ago and decided to stop it. Pt states I feel anxious. TECHNIQUE: Frontal radiographic view(s) of the chest. COMPARISON: 08/07/2024. FINDINGS: LUNGS: No focal opacity, pleural effusion, or pneumothorax. HEART/MEDIASTINUM: Cardiac silhouette normal in size. Mediastinal and hilar contours appear normal. LINES/TUBES: None. BONES: No acute osseous abnormality. IMPRESSION: No acute cardiopulmonary abnormality. THIS IS AN ELECTRONICALLY VERIFIED FINAL REPORT 09/12/2024 5:30 PM - Electronically signed by Jimmie Loredo M.D. CH: [place] Report ID: [id number] Reading Location: [place] [address] Procedure Note Jimmie Loredo Jr., MD - 09/12/2024 EXAM DESCRIPTION: XR CHEST 1 VIEW REASON FOR STUDY: chest pain c/o chest pain x 3 days. Pt states it feels like tightness. Pt deniescardiac hx. Pt states he was put on sertraline for anxiety 2 weeks ago and decidedto stop it. Pt states I feel anxious. TECHNIQUE: Frontal radiographic view(s) of the chest. COMPARISON: 08/07/2024. FINDINGS: LUNGS: No focal opacity, pleural effusion, or pneumothorax. HEART/MEDIASTINUM: Cardiac silhouette normal in size. Mediastinal andhilar contours appear normal. LINES/TUBES: None. BONES: No acute osseous abnormality. IMPRESSION: No acute cardiopulmonary abnormality. THIS IS AN ELECTRONICALLY VERIFIED FINAL REPORT 09/12/2024 5:30 PM - Electronically signed by Jimmie Loredo M.D. CH: [place] Report ID: [id number] Reading Location: [place] [address] Higinio Steiner MD IMG XR PROCEDURES Final Result * ECG 12 lead (09/12/2024 4:41 PM CDT) 09/12/2024 4:41 PM CDT Narrative [facility] - 09/13/2024 6:51 AM CDT Vent Rate: 82 bpm RR Interval: 727 msec [place] Interval: 166 msec QRS Duration: 118 msec QT Interval: 341 msec QTC Interval: 380 msec P-R-T [place]: 42 - 36 - 56 degrees IMPRESSION: SINUS RHYTHM INCOMPLETE RIGHT BUNDLE BRANCH BLOCK [90+ ms QRS DURATION, TERMINAL R IN V1/V2, 40+ ms S IN I/aVL/V4/V5/V6] BORDERLINE ECG NO CHANGE FROM PREVIOUS TRACING NOTED Electronically Signed By: Lencho Jefferson MD Higinio Steiner MD ECG ORDERABLES Final Result [facility] documented in this encounter Visit Diagnoses Diagnosis Panic attack- Primary Panic disorder without agoraphobia documented in this encounter Active and Recently Administered Medications Orders Medications Ordered That Keshav ht Not Have Been Administered Count Last Ordered Date First Ordered Date aspirin chewable tablet 324 mg 1 09/12/2024 Nursing Count Last Ordered Date First Orde red Date CONTINUOUS PULSE OXIMETRY 1 09/12/2024 IV Count Last Ordered Date First Orde red Date SALINE LOCK IV 1 09/12/2024 documented in this encounter Care Teams It Infrastructure Consultant Relationship Specialty Start Date End Date Sydney Galeana MD [address] [place] [address] [address] [place] [address] PCP - General Family Medicine 08/11/24 Tong Monae MD [address] [facility] [address] [place] [address] Consulting Physician Family Medicine 08/08/24 Adriel Shetty MD [address] [facility] [address] [place] [address] Consulting Physician Family Practice 08/08/24 documented as of this encounter
--- OUTSIDE RECORDS SUMMARY | 2024-09-14 17:04 | XMS_ITS | Clinical Summary ---
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 Role Phone Tong Monae MD Unavailable [phone] Adriel Shetty MD Unavailable [phone] Sydney Galeana MD Primary Care Provider [phone] Allergies No known active allergies Medications cyanocobalamin (Vitamin B-12) 100 mcg tabletIndicatio ns:Prevention of Vitamin B12 Deficiency Take 1 tablet (100 mcg total) by mouth daily Active pyridoxine (VITAMIN B-6) 50 mg tablet Take 1 tablet (50 mg total) by mouth daily Active melatonin 10 mg tablet Take 1 tablet (10 mg total) by mouth nightly as needed Active atorvastatin (LIPITOR) 10 mg tablet Take 1 tablet (10 mg total) by mouth nightly 30 tablet 08/08/2024 Active buPROPion SR (WELLBUTRIN SR) 150 mg 12 hr tablet Take 1 tablet (150 mg total) by mouth daily for 2 days, THEN 1 tablet (150 mg total) 2 (two) times a day for 28 days. 58 tablet 08/09/2024 Active hydrOXYzine (ATARAX) 25 mg tabletIndicatio ns:anxiety Take 1 tablet (25 mg total) by mouth 4 (four) times a day as needed for anxiety 24 tablet 08/08/2024 Active sertraline (ZOLOFT) 25 mg tabletIndicatio ns:Generalized Anxiety Disorder Take 2 tablets (50 mg total) by mouth daily 60 tablet 1 08/11/2024 Active nicotine (NICODERM CQ) 21 mgIndications:T obacco use Place 1 patch on the skin daily for 24 hours 28 patch 08/11/2024 Active busPIRone (BUSPAR) 7.5 mg tabletIndicatio ns:Generalized Anxiety Disorder Take 1 tablet (7.5 mg total) by mouth 2 (two) times a day 60 tablet 09/12/2024 Active Active Problems Problem Noted Date Diagnosed Date Generalized anxiety disorder 08/11/2024 Tobacco use 08/11/2024 Hypertension 08/08/2024 Acute chest pain 08/07/2024 Encounters Date Type Department Care Team Description 09/12/2024 6:55 PM CDT - 09/12/2024 7:41 PM CDT Emergency [facility] Emergency Department [address] [place] [address] Higinio Steiner MD Panic attack (Primary Dx) Discharge Disposition: Discharge to home or self care 08/11/2024 9:30 AM CDT Office Visit [facility] [place] [address] [facility] [address] [place] [phone] Sydney Galeana MD Generalized anxiety disorder (Primary Dx); Tobacco use 08/08/2024 Orders Only [facility] Cardiology [address] [place] [address] Maricruz Osman 08/07/2024 5:33 PM CDT - 08/08/2024 2:07 PM CDT Emergency [facility] IMU [address] [place] [address] Arnie Suazo MD Huynh, Kiet T., MD Sinha, Chandni, MD Acute chest pain (Primary Dx); MARCUS (dyspnea on exertion); RBBB Discharge Disposition: Discharge to home or self care from Last 3 Months Social History Tobacco Use Types Packs/Day Years Used Date Smoking Tobacco: Every Day Cigarettes 0.7 30.3 Started: 1994 Smokeless Tobacco: Never Tobacco Cessation:Ready to Q uit: Not Asked; Counseling Given: Not Answered AUDIT-C Answer Date Recorded Q1: How often [...] on file 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 Gender Identity Not on file Sexual Orientation Not on file Obstetrics History Last Filed Vital Signs Vital Sign Reading Time Taken Comments Blood Pressure 149/79 09/12/2024 4:43 PM CDT Pulse 75 09/12/2024 7:11 PM CDT Temperature 36.6 C (97.9 F) 09/12/2024 4:43 PM CDT Respiratory Rate 18 09/12/2024 7:09 PM CDT Oxygen Saturation 100% 09/12/2024 7:09 PM CDT Inhaled Oxygen Concentration - - Weight 106.1 kg (234 lb) 09/12/2024 4:43 PM CDT Height 172.7 cm (5' 7.99 ) 08/11/2024 9:59 AM CD T Body Mass Index 35.59 08/11/2024 9:59 AM CDT Plan of Treatment Health Maintenance Due Date Last Done Comments Hepatitis C Screening 1980 Varicella Vaccines (1 of 2 - 13+ 2-dose series) 10/11/1992 DTaP/Tdap/Td Vaccine (6 - Tdap) 12/25/1993 12/24/1993, 01/07/1985, 04/17/1981, Additional history exists Hepatitis B Screening 10/11/1997 Regular Well Visit/Exam 18-64 10/11/1997 Pneumococcal vaccine <65 (1 of 2 - PCV) 10/11/1998 Influenza Vaccine (Season Ended) 2025 Depression Screening 08/11/2025 08/11/2024 HPV Vaccines Aged Out No longer eligi ble based on patient's age to complete this topic Procedures Procedure Name Priority Date/Time Associated Diagnosis Comments TROPONIN T HIGH-SENSITIVITY 2-HOUR Timed 09/12/2024 7:07 PM CDT EGFR STAT 09/12/2024 5:20 PM CDT DIFFERENTIAL AUTO STAT 09/12/2024 5:2 0 PM CDT TROPONIN T HIGH-SENSITIVITY SERIES (BASELINE, 2HR, 4HR, 6HR) STAT 09/12/2024 5:20 PM CDT COMPREHENSIVE METABOLIC PANEL STAT 09/12/2024 5:20 PM CDT CBC WITH AUTO DIFFERENTIAL STAT 09/12/2024 5:20 PM CDT XR CHEST 1 VIEW ED 09/12/2024 4:55 PM CDT ECG 12-LEAD STAT 09/12/2024 4:41 PM CDT TRANSTHORACIC ECHO (TTE) COMPLETE W DOPPLER/CF WO CONTRAST ED 08/08/2024 11:03 AM CDT EGFR Routine 08/08/2024 10:56 AM CDT DIFFERENTIAL AUTO Routine 08/08/2024 10: 56 AM CDT HEMOGLOBIN A1C Add-On 08/08/2024 10:56 AM CDT MAGNESIUM Routine 08/08/2024 10:56 AM CDT COMPREHENSIVE METABOLIC PANEL Routine 08/08/2024 10:56 AM CDT CBC WITH AUTO DIFFERENTIAL Routine 08/08/2024 10:56 AM CDT STRESS TEST FOR DUAL READ ED Urgent/IP Urgent 08/08/2024 10:12 AM CDT NM MPI SPECT (REST AND/OR STRESS) MULTIPLE STUDIES ED Urgent/IP Urgent 08/08/2024 10:12 AM CDT TROPONIN T HIGH-SENSITIVITY 6-HOUR Timed 08/08/2024 12:35 AM CDT TROPONIN T HIGH-SENSITIVITY 4-HR Timed 08/07/2024 10:33 PM CDT XR CHEST 1 VIEW ED 08/07/2024 6:27 PM CDT EGFR STAT 08/07/2024 6:10 PM CDT DIFFERENTIAL AUTO STAT 08/07/2024 6:1 0 PM CDT PRO B-TYPE NATRIURETIC PEPTIDE STAT 08/07/2024 6:10 PM CDT MAGNESIUM Routine 08/07/2024 6:10 PM CDT LIPID PANEL STAT 08/07/2024 6:10 PM CDT TROPONIN T HIGH-SENSITIVITY SERIES (BASELINE, 2HR, 4HR, 6HR) STAT 08/07/2024 6:10 PM CDT COMPREHENSIVE METABOLIC PANEL STAT 08/07/2024 6:10 PM CDT CBC WITH AUTO DIFFERENTIAL STAT 08/07/2024 6:10 PM CDT ECG 12-LEAD STAT 08/07/2024 5:16 PM CDT from Last 3 Months Results * Troponin T high-sensitivity 2-hour (09/12/2024 [...] BLOOD ORDERABLES Final Res ult [facility] ([place] 1 [facility] [place] [address] * Troponin T high-sensitivity series (baseline, 2hr, 4hr, 6hr) (09/12/2024 5:20 PM CDT) Trop T hs 8 <=22 ng/L Comment: Interpretive Data For further hscTnT resources including the diagnostic algorithm and an aid in interpretation, copy and paste this link: https://nrl.testcatalog.org/show/hsTrop Current Interpretive Data last revised 2020. Blood 09/12/2024 5:20 PM CDT 09/12/2024 5:23 PM CDT Higinio Steiner MD LAB BLOOD ORDERABLES Final Res ult [facility] [place] [address] [facility] [place] [address] * eGFR (09/12/2024 5:20 PM CDT) eGFR [...] Final Res ult [facility] ([place] [address] [facility] [place] [address] * (ABNORMAL) Differential, auto (09/12/2024 5:20 PM CDT) Neutrophil abs 7.74(H) 1.50 - 6.50 K/cumm Imm gran abs 0.03 0.00 - 0.10 K/cumm [facility] [place]) Lymphocyte abs 2.79 0.80 - [...] MD LAB BLOOD ORDERABLES Final Res ult [facility] ([place]) [address] [facility] [place] [address] * (ABNORMAL) CBC with auto differential (09/12/2024 5:20 PM CDT) WBC 11.55(H) 3.80 - 9.90 K/cumm Hgb 14.9 13.0 - 17.5 g/dL [facility] ([place]) Hct 44.0 38.9 - 50.3 % [facility] Plt 292 150 - 400 K/cumm [facility] ([place]) MPV 10.0 9.1 - 12.3 fL [facility] RBC 5.09 4.30 - 5.80 M/cumm [facility] ([place]) MCV 86.4 81.3 - 96.4 fL [facility] [place] MCH 29.3 27.1 - 33.3 pg [facility] MCHC 33.9 32.3 - 35.7 g/dL [facility] ([place]) RDW CV 13.2 11.1 - 14.9 % [facility] RDW SD 41.1 35.7 - 48.1 fL [facility] NRBC abs 0.00 0.00 - 0.01 K/cumm [facility]) Blood Venous blood specimen / Unknown 09/12/2024 5:20 PM CDT 09/12/2024 5:23 PM CDT us Higinio Steiner MD LAB BLOOD ORDERABLES Final Res ult [facility] ([place] [address] [facility] [place] [address] * (ABNORMAL) Comprehensive metabolic panel (09/12/2024 5:20 PM CDT) Sodium 135 135 - 145 mmol/L Potassium, pl 4.2 3.3 - 4.9 mmol/L [facility] [place] Chloride 100 97 - 110 mmol/L [facility] [place] CO2 23 22 - 32 mmol/L [facility]) Anion gap 12 2 - 15 mmol/L [facility] [place]) BUN 11 6 - 25 mg/dL [facility]) Creatinine 0.54(L) 0.80 - 1.30 mg/dL [facility] [place] Glucose 118 70 - 199 mg/dL [facility]) Comment: Interpretive Data Fasting glucose >/= [...] classification and Diagnosis of Diabetes Diabetes Care 2021; 46: S19-S40. Current interpretive data was last [...] LAB BLOOD ORDERABLES Final Res ult [facility] ([place] [address] [facility] [place] [address] * XR Chest 1 Vw Portable (if [...] Jimmie Loredo M.D. CH: SJ Report ID: [id number] Reading Location: [place] [address] Procedure Note Jimmie Loredo Jr., MD - [...] Electronically signed by Jimmie Loredo M.D. CH: Report ID: [id number] Reading Location: [place] [address] Higinio Steiner MD IMG XR PROCEDURES Final Result * ECG 12 lead (09/12/2024 4:41 PM CDT) 09/12/2024 4:41 PM CDT Narrative [facility] - 09/13/2024 6:51 AM CDT Vent Rate: 82 bpm RR Interval: 727 msec [place] Interval: 166 msec QRS Duration: 118 msec QT Interval: 341 msec QTC Interval: 380 msec P-R-T [place]: 42 - 36 - 56 degrees IMPRESSION: SINUS RHYTHM INCOMPLETE RIGHT BUNDLE BRANCH BLOCK [90+ ms QRS DURATION, TERMINAL R IN V1/V2, 40+ ms S IN I/aVL/V4/V5/V6] BORDERLINE ECG NO CHANGE FROM PREVIOUS TRACING NOTED Electronically Signed By: Lencho Jefferson MD Higinio Steiner MD ECG ORDERABLES Final Result [facility] * TRANSTHORACIC ECHO (TTE) COMPLETE W DOPPLER/CF WO CONTRAST (08/08/2024 11:03 AM CDT) LV EF 65 % CONS SCIMAGE Anatomical Region Laterality Modality Ultrasound 08/08/2024 10:1 4 AM CDT Narrative 08/08/2024 12:32 PM CDT [address] [address] Echocardiogram Report Patient Name: DAVID MÉNDEZ : 1980 Study Date: 08/08/2024 10:14:51 AM Gender: M Tech: AA Location: [id number] Ref Provider: ARNIE SUAZO Height(Cm): BSA: Weight(Kg): Quality: Good Order Provider: ARNIE SUAZO PROCEDURES: Echocardiographic Report: Transthoracic echocardiogram with complete 2D, M-Mode, and color Doppler examination. INDICATIONS: Chest Pain. MEASUREMENTS: 2D/MM Value Range Doppler Value Range EF Teich 2D 63.9 % [ 52.0 - 72.0 ] EVERETTE Vmax 3.44 cm2 Estimated EF 65 % AV Mean PG 4 mmHg LVIDd 2D 4.79 cm [ 4.20 - 5.80 ] AV Peak Arias 1.30 m/s [ 1.00 - 1.70 ] LVIDs 2D 3.12 cm [ 2.50 - 4.00 ] AV VTI 26.17 cm LVPWd 2D 1.45 cm [ 0.60 - 1.00 ] LVOT Diam 2.26 cm IVSd 2D 1.50 cm [ 0.60 - 1.00 ] LVOT Peak Arias 1.12 m/s [ 0.70 - 1.10 ] LA Dimension MM 3.92 cm [ 3.00 - 4.00 ] LVOT VTI 22.87 cm AoR Diam MM 3.63 cm [ 3.10 - 3.70 ] MV E Peak Arias 0.93 m/s [ 0.60 - 1.30 ] ACS MM 2.43 cm [ 1.50 - 2.60 ] MV A Peak Arias 0.53 m/s [ 1.00 - 1.20 ] MV Mean PG 1 mmHg MV PHT 60 msec [ 20 - 100 ] MVA 2.50 MV Decel Time 213 msec [ 104 - 258 ] PV Peak Arias 0.93 m/s [ 0.40 - 0.80 ] TR Peak Arias 1.92 m/s [ 1.00 - 2.80 ] TR Peak PG 15 mmHg RVSP 20.00 mmHg [ 10.00 - 36.00 ] E` 0.08 m/s E/E` 11.55 [ <= 10.00 ] PA Pressure 5.00 mmHg [ 10.00 - 36.00 ] 2D/MM Value Range Doppler Value Range - FINDINGS: Atrial Septum: Normal atrial septum. Left Ventricle: Normal left ventricular systolic function with no focal wall motion abnormalities. Normal left ventricular size. Mild concentric left ventricular hypertrophy. Normal left ventricular diastolic function. Ejection Fraction is estimated to be 65 %. Left Atrium: The left atrium is normal in size. Right Ventricle: Normal right ventricular size. Normal right ventricular systolic function. Right Atrium: The right atrium is normal in size. Aortic Valve: Normal structure of the aortic valve. Mitral Valve: Normal structure of the mitral valve. Pulmonic Valve: Normal structure of the pulmonic valve. Tricuspid Valve: Normal right ventricular systolic pressure. Estimated peak RVSP is 25 mmHg. Mild tricuspid regurgitation. Pericardium: Normal pericardium with no significant pericardial effusion. Aorta: Normal aortic root. Sinus of Valsalva is normal. Aortic arch is normal. Descending aorta is normal. IVC: Normal size and normal respiratory collapse consistent with normal right atrial pressure (<5 mmHg). Pulmonary Artery: Normal pulmonary artery size. CONCLUSIONS: Normal left ventricular systolic function with no focal wall motion abnormalities. Normal left ventricular size. Mild concentric left ventricular hypertrophy. Normal left ventricular diastolic function. Ejection Fraction is estimated to be 65 %. Normal right ventricular systolic pressure. Estimated peak RVSP is 25 mmHg. Mild tricuspid regurgitation. Electronically Signed By: Lencho Jefferson MD 08/08/2024 12:32:17 PM CDT Procedure Note Lencho Jefferson MD - 08/08/[address] [place] [address] Echocardiogram Report Patient Name: DAVID MÉNDEZ : 1980 Study Date: 08/08/2024 10:14:51 AM Gender: M Tech: AA Location: [id number] Ref Provider: ARNIE SUAZO Height(Cm): BSA: Weight(Kg): Quality: Good Order Provider: ARNIE SUAZO PROCEDURES: Echocardiographic Report: Transthoracic echocardiogram with complete 2D, M-Mode, and color Dopplerexamination. INDICATIONS: Chest Pain. MEASUREMENTS: 2D/MM Value Range Doppler ValueRange EF Teich 2D 63.9 % [ 52.0 - 72.0 ] EVERETTE Vmax 3.44cm2 Estimated EF 65 % AV Mean PG 4 mmHg LVIDd 2D 4.79 cm [ 4.20 - 5.80 ] AV Peak Arias 1.30 m/s[ 1.00 - 1.70 ] LVIDs 2D 3.12 cm [ 2.50 - 4.00 ] AV VTI 26.17cm LVPWd 2D 1.45 cm [ 0.60 - 1.00 ] LVOT Diam 2.26cm IVSd 2D 1.50 cm [ 0.60 - 1.00 ] LVOT Peak Arias 1.12 m/s[ 0.70 - 1.10 ] LA Dimension MM 3.92 cm [ 3.00 - 4.00 ] LVOT VTI 22.87cm AoR Diam MM 3.63 cm [ 3.10 - 3.70 ] MV E Peak Arias 0.93 m/s[ 0.60 - 1.30 ] ACS MM 2.43 cm [ 1.50 - 2.60 ] MV A Peak Arias 0.53 m/s[ 1.00 - 1.20 ] MV Mean PG 1 mmHg MV PHT 60 msec [ 20 - 100 ] MVA 2.50 MV Decel Time 213 msec [ 104 - 258 ] PV Peak Arias 0.93 m/s [ 0.40 - 0.80 ] TR Peak Arias 1.92 m/s [ 1.00 - 2.80 ] TR Peak PG 15 mmHg RVSP 20.00 mmHg [ 10.00 - 36.00 ] E` 0.08 m/s E/E` 11.55 [ <= 10.00 ] PA Pressure 5.00 mmHg [ 10.00 - 36.00 ] 2D/MM Value Range Doppler ValueRange - FINDINGS: Atrial Septum: Normal atrial septum. Left Ventricle: Normal left ventricular systolic function with no focal wall motionabnormalities. Normal left ventricular size. Mild concentric left ventricular hypertrophy.Normal left ventricular diastolic function. Ejection Fraction is estimated to be 65%. Left Atrium: The left atrium is normal in size. Right Ventricle: Normal right ventricular size. Normal right ventricular systolicfunction. Right Atrium: The right atrium is normal in size. Aortic Valve: Normal structure of the aortic valve. Mitral Valve: Normal structure of the mitral valve. Pulmonic Valve: Normal structure of the pulmonic valve. Tricuspid Valve: Normal right ventricular systolic pressure. Estimated peak RVSP is 25mmHg. Mild tricuspid regurgitation. Pericardium: Normal pericardium with no significant pericardial effusion. Aorta: Normal aortic root. Sinus of Valsalva is normal. Aortic arch is normal.Descending aorta is normal. IVC: Normal size and normal respiratory collapse consistent with normal rightatrial pressure (<5 mmHg). Pulmonary Artery: Normal pulmonary artery size. CONCLUSIONS: Normal left ventricular systolic function with no focal wall motionabnormalities. Normal left ventricular size. Mild concentric left ventricular hypertrophy.Normal left ventricular diastolic function. Ejection Fraction is estimated to be 65%. Normal right ventricular systolic pressure. Estimated peak RVSP is 25mmHg. Mild tricuspid regurgitation. Electronically Signed By: Lencho Jefferson MD 08/08/2024 12:32:17 PM CDT us Arnie Suazo MD CV ECHO PROCEDURES Final Re sult * eGFR (08/08/2024 10:56 AM CDT) eGFR >90 >=60 mL/min/1. 73 m2 [...] interpretive data was last reviewed 2021. Blood 08/08/2024 10:5 6 AM CDT 08/08/2024 11:01 AM CDT us Michael Conte MD LAB BLOOD ORDERABLES Final Resu lt [facility] ([place] 1 [facility] Department of Laboratories [place], [place] [address] * (ABNORMAL) Differential, auto (08/08/2024 10:56 AM CDT) Neutrophil abs 6.8(H) 1.5 - 6.5 K/cumm Imm gran abs 0.0 0.0 - 0.1 K/cumm [facility] ([place]) Lymphocyte abs 3.1 0.8 - 3.3 K/cumm [facility] ([place]) Monocyte abs 0.8 0.2 - 0.8 K/cumm [facility]) Eosinophil abs 0.2 0.0 - 0.5 K/cumm [facility]) Basophil abs 0.1 0.0 - 0.1 K/cumm [facility]) Neutrophil pct 62.2 % [facility] ([place]) Comment: Interpretive Data Percent cell count reference ranges are not reported, since discordance with absolute values may lead to misinterpretation of CBC data. Current Interpretive Data was last revised on 2017. Imm gran pct 0.4 % [facility] Comment: Interpretive Data Percent cell count reference ranges are not reported, since discordance with absolute values may lead to misinterpretation of CBC data. Current Interpretive Data was last revised on 2017. Lymphocyte pct 28.4 % [facility] ([place] Comment: Interpretive Data Percent cell count reference ranges are not reported, since discordance with absolute values may lead to misinterpretation of CBC data. Current Interpretive Data was last revised on 2017. Monocyte pct 7.1 % [facility] Comment: Interpretive Data Percent cell count reference ranges are not reported, since discordance with absolute values may lead to misinterpretation of CBC data. Current Interpretive Data was last revised on 2017. Eosinophil pct 1.4 % [facility] Comment: Interpretive [...] Data was last revised on 2017. Blood 08/08/2024 10:5 6 AM CDT 08/08/2024 11:01 AM CDT us Michael Conte MD LAB BLOOD ORDERABLES Final Resu lt [facility] ([place] [facility] [place] [address] * (ABNORMAL) CBC with auto differential (08/08/2024 10:56 AM CDT) WBC 11.0(H) 3.8 - 9.9 K/cumm Hgb 15.7 13.0 - 17.5 g/dL [facility]) Hct 47.5 38.9 - 50.3 % [facility] Plt 297 150 - 400 K/cumm [facility]) MPV 10.4 9.1 - 12.3 fL [facility] RBC 5.43 4.30 - 5.80 M/cumm [facility]) MCV 87.5 81.3 - 96.4 fL [facility]) MCH 28.9 27.1 - 33.3 pg [facility] MCHC 33.1 32.3 - 35.7 g/dL [facility] RDW CV 13.8 11.1 - 14.9 % [facility] RDW SD 44.4 35.7 - 48.1 fL [facility]) NRBC abs 0.00 0.00 - 0.01 K/cumm [facility] ([place]) Blood 08/08/2024 10:5 6 AM CDT 08/08/2024 11:01 AM CDT Michael Conte MD LAB BLOOD ORDERABLES Final Resu lt Performing Organization Address City/[facility]/ZIP Co de Phone Number [facility] ([place] [address] [facility] [employer] [place] [address] * Magnesium (08/08/2024 10:56 AM CDT) Magnesium 2.3 1.4 - 2.5 mg/dL Blood 08/08/2024 10:5 6 AM CDT 08/08/2024 11:01 AM CDT Michael Conte MD LAB BLOOD ORDERABLES Final Resu lt Performing Organization Address City/[facility]/ZIP Co de Phone Number [facility] [place] [address] [facility] [employer] [place] [address] * (ABNORMAL) Hemoglobin A1c (08/08/2024 10:56 AM CDT) Hgb A1C 7.1(H) 4.0 - 5.6 % Estimated Average Glucose 157 mg/dL [facility] ([place]) Comment: The ADA recommends reporting an estimated Average Glucose (eAG) with all Hemoglobin A1c results using the equation derived from a study of 507 normal and diabetic adults. Minority populations were underrepresented and children were not included. (Diabetes Care 31:8121-2670, 2008). The eAG is not equivalent to a fasting glucose. Blood 08/08/2024 10:5 6 AM CDT 08/08/2024 11:01 AM CDT us Zhane Daniel NP LAB BLOOD ORDERABLE S Final Result [facility] ([place] 1 [facility] Department of Laboratories [place] [id number] * (ABNORMAL) Comprehensive metabolic panel (08/08/2024 10:56 AM CDT) Sodium 137 135 - 145 mmol/L Potassium, pl 4.4 3.3 - 4.9 mmol/L [facility] Chloride 102 97 - 110 mmol/L [facility]) CO2 22 22 - 32 mmol/L [facility]) Anion gap 13 2 - 15 mmol/L [facility] BUN 11 6 - 25 mg/dL [facility] Creatinine 0.75(L) 0.80 - 1.30 mg/dL [facility] Glucose 118 70 - 199 mg/dL [facility] ([place]) Comment: Interpretive Data Fasting glucose >/= [...] classification and Diagnosis of Diabetes Diabetes Care 2021; 46: S19-S40. Current interpretive data was last revised 2022. Calcium 9.4 8.5 - 10.3 mg/dL [facility]) Bilirubin, total 0.4 0.1 - 1.2 mg/dL [facility]) Protein, pl 7.4 6.5 - 8.5 g/dL [facility]) Albumin 4.2 3.5 - 5.0 g/dL [facility]) Alk phos 71 40 - 130 Units/L [facility] ALT 38 7 - 55 Units/L [facility] AST 25 10 - 50 Units/L [facility] Blood 08/08/2024 10:5 6 AM CDT 08/08/2024 11:01 AM CDT us Michael Conte MD LAB BLOOD ORDERABLES Final Resu lt [facility] ([place] [place] [address] * NM MPI SPECT (Rest and/or Stress) Multiple Studies (08/08/2024 10:12 AM CDT) Anatomical Region Laterality Modality Body N/A Nuclear Medicine 08/08/2024 10:1 5 AM CDT Narrative 08/08/2024 10:24 AM CDT EXAM DESCRIPTION: NM MPI SPECT (REST AND/OR STRESS) MULTIPLE STUDIES REASON FOR STUDY: Chest pain. RADIOPHARMACEUTICAL: Rest: 10.2 mCi Tc-99m tetrofosmin Pharmacologic Stress: 31 mCi Tc-99m tetrofosmin Injection site: Right arm IV site TECHNIQUE: Standard myocardial perfusion SPECT images were obtained after resting tracer injection. Subsequently, an intravenous infusion of 0.4 mg Lexiscan was performed. Standard myocardial perfusion images were obtained after tracer injection at the peak effect of the drug. COMPARISON: None FINDINGS: Image quality is adequate at rest and adequate at stress. Small area of mildly reduced perfusion in the distal lateral wall at both rest and stress. No significant reversibility. The left ventricular cavity size is normal . Gated tomographic images demonstrate normal wall motion and wall thickening with a left ventricular ejection fraction of 55 % poststress (normal >45%). IMPRESSION: No scintigraphic evidence of myocardial ischemia. Small area of mildly reduced perfusion in the distal lateral wall at both rest and stress likely related to prior infarct or possible artifact. No significant reversibility. Normal left ventricular ejection fraction of 55 % poststress. Normal wall motion. THIS IS AN ELECTRONICALLY VERIFIED FINAL REPORT 08/08/2024 10:24 AM - Electronically signed by Arnie Goldman M.D. LB: LB Report ID: [id number] Reading Location: [id number] Procedure Note Arnie Goldman MD - 08/08/2024 EXAM DESCRIPTION: NM MPI SPECT (REST AND/OR STRESS) MULTIPLE STUDIES REASON FOR STUDY: Chest pain. RADIOPHARMACEUTICAL: Rest: 10.2 mCi Tc-99m tetrofosmin Pharmacologic Stress: 31 mCi Tc-99m tetrofosmin Injection site: Right arm IV site TECHNIQUE: Standard myocardial perfusion SPECT images were obtained after resting tracer injection. Subsequently, an intravenous infusion of 0.4 mg Lexiscan was performed. Standard myocardial perfusion images wereobtained after tracer injection at the peak effect of the drug. COMPARISON: None FINDINGS: Image quality is adequate at rest and adequate at stress. Small area of mildly reduced perfusion in the distal lateral wall at bothrest and stress. No significant reversibility. The left ventricular cavity size is normal . Gated tomographic images demonstrate normal wall motion and wallthickening with a left ventricular ejection fraction of 55 % poststress (normal>45%). IMPRESSION: No scintigraphic evidence of myocardial ischemia. Small area of mildly reduced perfusion in the distal lateral wall at both rest and stresslikely related to prior infarct or possible artifact. No significantreversibility. Normal left ventricular ejection fraction of 55 % poststress. Normal wall motion. THIS IS AN ELECTRONICALLY VERIFIED FINAL REPORT 08/08/2024 10:24 AM - Electronically signed by Arnie Goldman M.D. LB: LB Report ID: [id number] Reading Location: [id number] Zhanezaida Meehanlle Michael FRENCH POLISHER IMG NM PROCEDURES F inal Result * Stress Test for Myocardial Perfusion (08/08/2024 10:12 AM CDT) Anatomical Region Laterality Modality Nuclear Medicine 08/08/2024 8:10 AM CDT Narrative 08/08/2024 10:25 AM CDT [address] [address] [employer] Report Patient Name: DAVID MÉNDEZ : 1980 Study Date: 08/08/2024 8:10:00 AM Gender: M Tech: maricruz osman Location: [id number] Ref Provider: ZHANE DANIEL Height(Cm): 173 BSA: 3.34 Weight(Kg): 233 Heart Rate: 150 Order Provider: ZHANE DAINEL PROCEDURES: Pharmacologic SPECT Report.: Myocardial perfusion imaging with Sestamibi SPECT at rest and post regadenoson (Lexiscan) infusion. INDICATIONS: Chest Pain. FINDINGS: Procedure Data: Resting HR 63 bpm Peak HR: 95 bpm Predicted Maximal HR 176 bpm Target HR: 150 bpm Percent Max Predicted HR Achieved: 53.98 % Baseline BP: 129/69 mmHg Peak BP: 124/67 mmHg Exercise Time: 00:10 Performed By: chana mckeon rn. Supervising Physician: The Supervising Physician is darby caal. Reason for Termination: Lexiscan protocol complete. Resting ECG: Normal sinus rhythm at 64 beats per minute, rightward axis, poor R-wave progression, 1 PAC. Post Pharm ECG: No diagnostic ST changes. Arrhythmia: No arrhythmias seen. Cardiac Symptoms With Stress: Symptoms with stress were None. Exam Interpreted: Read by . CONCLUSIONS: 1. Negative Lexiscan pharmacologic stress test for chest pain or EKG changes. 2. Nuclear images are pending and they will be reported separately. Electronically Signed By: Dr Darby Caal 08/08/2024 10:21:57 AM CDT Procedure Note Darby Caal MD - 08/08/[address] [address] Lexiscan Report Patient Name: DAVID MÉNDEZ : 1980 Study Date: 08/08/2024 8:10:00 AM Gender: M Tech: maricruz osman Location: [id number] [facility] Provider: ZHANE DANIEL Height(Cm): 173 BSA: 3.34 Weight(Kg): 233 Heart Rate: 150 Order Provider: ZHANE DANIEL PROCEDURES: Pharmacologic SPECT Report.: Myocardial perfusion imaging with Sestamibi SPECT at rest and postregadenoson (Lexiscan) infusion. INDICATIONS: Chest Pain. FINDINGS: Procedure Data: Resting HR 63 bpm Peak HR: 95 bpm Predicted Maximal HR 176 bpm Target HR: 150 bpm Percent Max Predicted HR Achieved: 53.98 % Baseline BP: 129/69 mmHg Peak BP: 124/67 mmHg Exercise Time: 00:10 Performed By: chana mckeon rn. Supervising Physician: The Supervising Physician is darby caal. Reason for Termination: Lexiscan protocol complete. Resting ECG: Normal sinus rhythm at 64 beats per minute, rightward axis, poor R- waveprogression, 1 PAC. Post Pharm ECG: No diagnostic ST changes. Arrhythmia: No arrhythmias seen. Cardiac Symptoms With Stress: Symptoms with stress were None. Exam Interpreted: Read by . CONCLUSIONS: 1. Negative Lexiscan pharmacologic stress test for chest pain or EKGchanges. 2. Nuclear images are pending and they will be reported separately. Electronically Signed By: Dr Darby Caal 08/08/2024 10:21:57 AM CDT us Zhane Daniel NP CV STRESS PROCEDURE S Final Result * Troponin T high-sensitivity 6-hour (08/08/2024 12:35 AM CDT) Trop T hs 11 <=22 ng/L Comment: Interpretive Data For further hscTnT resources including the diagnostic algorithm and an aid in interpretation, copy and paste this link: https://nrl.[email or web address]/show/hsTrop Current Interpretive Data last revised 2020. Trop T hs delta 3 ng/L [facility]) Trop T hs interp Insignificant [facility] ([place]) Blood 08/08/2024 12:3 5 AM CDT 08/08/2024 12:39 AM CDT us Arnie Suazo MD LAB BLOOD ORDERABLES Final Result [facility] ([place]) [facility] [place] [address] * Troponin T high-sensitivity 4-hour (08/07/2024 10:33 PM CDT) Trop T hs 8 <=22 ng/L Comment: Interpretive Data For further hscTnT resources including the diagnostic algorithm and an aid in interpretation, copy and paste this link: https://nrl.[email or web address]/show/hsTrop Current Interpretive Data last revised 2020. Trop T hs delta 0 ng/L [facility] ([place]) Trop T hs interp Insignificant [facility] ([place]) Blood 08/07/2024 10:3 3 PM CDT 08/07/2024 10:42 PM CDT us Arnie Suazo MD LAB BLOOD ORDERABLES Final Result [facility] [place] [place] [address] * XR CHEST 1 VIEW PORTABLE (08/07/2024 6:27 PM CDT) Anatomical Region Laterality Modality Body, Chest N/A Computed Radiogr aphy 08/07/2024 6:36 PM CDT Narrative 08/07/2024 6:38 PM CDT EXAM DESCRIPTION: XR CHEST 1 VIEW REASON FOR STUDY: chest pain Pt to the ED with c/o intermittent chest pain over the last week. Pt stated that he is trying to stop smoking and doesn't know if its maybe anxiety. Reports at times he feels shaky and hot. TECHNIQUE: 1 radiographic view(s) of the chest. COMPARISON: None FINDINGS: LUNGS: Mild right basilar opacities may represent atelectasis or airspace disease. No pleural effusion or pneumothorax. HEART/MEDIASTINUM: Cardiac silhouette normal in size. Mediastinal and hilar contours appear normal. LINES/TUBES: None. BONES: No acute osseous abnormality. IMPRESSION: Mild right basilar opacities may represent atelectasis or airspace disease. THIS IS AN ELECTRONICALLY VERIFIED FINAL REPORT 08/07/2024 6:38 PM - Electronically signed by Gray Bravo M.D. MM: MM Report ID: [id number] Reading Location: [id number] Procedure Note Gray Bravo MD - 08/07/2024 EXAM DESCRIPTION: XR CHEST 1 VIEW REASON FOR STUDY: chest pain Pt to the ED with c/o intermittent chest pain over the last week. Ptstated that he is trying to stop smoking and doesn't know if its maybe anxiety. Reports at times he feels shaky and hot. TECHNIQUE: 1 radiographic view(s) of the chest. COMPARISON: None FINDINGS: LUNGS: Mild right basilar opacities may represent atelectasis or airspace disease. No pleural effusion or pneumothorax. HEART/MEDIASTINUM: Cardiac silhouette normal in size. Mediastinal andhilar contours appear normal. LINES/TUBES: None. BONES: No acute osseous abnormality. IMPRESSION: Mild right basilar opacities may represent atelectasis or airspacedisease. THIS IS AN ELECTRONICALLY VERIFIED FINAL REPORT 08/07/2024 6:38 PM - Electronically signed by Gray Bravo M.D. MM: MM Report ID: [id number] Reading Location: [place] [address] Arnie Suazo MD IMG XR PROCEDURES Final Res ult * Troponin T high-sensitivity series (baseline, 2hr, 4hr, 6hr) (08/07/2024 6:10 PM CDT) Trop T hs 8 <=22 ng/L Comment: Interpretive Data For further hscTnT resources including the diagnostic algorithm and an aid in interpretation, copy and paste this link: https://nrl.testcatalog.org/show/hsTrop Current Interpretive Data last revised 2020. Blood 08/07/2024 6:10 PM CDT 08/07/2024 6:14 PM CDT Arnie Suazo MD LAB BLOOD ORDERABLES Final Result [facility] [place] [place] [address] * eGFR (08/07/2024 6:10 PM CDT) eGFR >90 >=60 mL/min/1. 73 [...] interpretive data was last reviewed 2021. Blood 08/07/2024 6:10 PM CDT 08/07/2024 6:14 PM CDT Arnie Suazo MD LAB BLOOD ORDERABLES Final Result [facility] ([place] [place] [address] * (ABNORMAL) Differential, auto (08/07/2024 6:10 PM CDT) Neutrophil abs 8.5(H) 1.5 - 6.5 K/cumm Imm gran abs 0.0 0.0 - 0.1 K/cumm [facility] ([place]) Lymphocyte abs 2.7 0.8 - 3.3 K/cumm [facility]) Monocyte abs 0.9(H) 0.2 - 0.8 K/cumm [facility]) Eosinophil abs 0.1 0.0 - 0.5 K/cumm [facility]) Basophil abs 0.1 0.0 - 0.1 K/cumm [facility]) Neutrophil pct 69.0 % [facility] Comment: Interpretive [...] was last revised on 2017. Lymphocyte pct 22.2 % [facility] Comment: Interpretive Data Percent cell count reference ranges are not reported, since discordance with absolute values may lead to misinterpretation of CBC data. Current Interpretive Data was last revised on 2017. Monocyte pct 7.2 % [facility] Comment: Interpretive Data Percent cell count reference ranges are not reported, since discordance with absolute values may lead to misinterpretation of CBC data. Current Interpretive Data was last revised on 2017. Eosinophil pct 0.7 % [facility] Comment: Interpretive Data Percent cell count reference ranges are not reported, since discordance with absolute values may lead to misinterpretation of CBC data. Current Interpretive Data was last revised on 2017. Basophil pct 0.6 % [facility] Comment: Interpretive Data Percent cell count reference ranges are not reported, since discordance with absolute values may lead to misinterpretation of CBC data. Current Interpretive Data was last revised on 2017. Blood 08/07/2024 6:10 PM CDT 08/07/2024 6:14 PM CDT Arnie Suazo MD LAB BLOOD ORDERABLES Final Result [facility] ([place] Department of Laboratories [place], [place] [id number] * Pro B-type natriuretic peptide (08/07/2024 6:10 PM CDT) NT-proBNP 63 <=300 pg/mL Comment: Interpretive Comments: A. Dyspnea in Acute Care Setting All Ages: < 300 pg/ml, acute heart failure unlikely. < 50 yrs: 300 - 450 pg/ml, further investigation warranted. > 450 pg/ml, acute heart failure likely. 50 - 74 yrs: 300 - 900 pg/ml, further investigation warranted. > 900 pg/ml, acute heart failure likely . > or = 75 yrs: 450 - 1800 pg/ml, further investigation warranted. > 1800 pg/ml, acute heart failure likely. B. Non-acute Setting < 75 yrs < 125 pg/ml, rules out heart failure. > or = 125 pg/ml, further investigation warranted. > or = 75 yrs < 450 pg/ml, rules out heart failure. > or = 450 pg/ml, further investigation warranted. - Knowledge of each individual patient's NT-proBNP range may be more useful than using similar cut-points for every patient. Please note that marked elevations in NT-proBNP levels may be observed in state other than Left Ventricular Congestive Failure, including: acute coronary syndromes, right heart strain/failure (including pulmonary embolism and cor pulmonale), critical illness, renal failure, as well as advanced age. - References: 1. Abeba KUMAR et.al. Eur Heart J. 2006:27:330-337. 2. Angelina RW, Khoi GONG. J. AM Clara Cardiol: Cardiovasc Imag. 2009;2: 216- 225. Interpretive Data Last Revised Date: 2018. Blood 08/07/2024 6:10 PM CDT 08/07/2024 6:14 PM CDT us Arnie Suazo MD LAB BLOOD ORDERABLES Final Result [facility] ([place] Department of Laboratories [place], [place] [id number] * (ABNORMAL) CBC with auto differential (08/07/2024 6:10 PM CDT) WBC 12.4(H) 3.8 - 9.9 K/cumm Hgb 16.6 13.0 - 17.5 g/dL [facility] Hct 48.8 38.9 - 50.3 % [facility] Plt 332 150 - 400 K/cumm [facility]) MPV 10.5 9.1 - 12.3 fL [facility] RBC 5.68 4.30 - 5.80 M/cumm [facility]) MCV 85.9 81.3 - 96.4 fL [facility] MCH 29.2 27.1 - 33.3 pg [facility] MCHC 34.0 32.3 - 35.7 g/dL [facility] ([place]) RDW CV 13.4 11.1 - 14.9 % [facility] ([place]) RDW SD 42.5 35.7 - 48.1 fL [facility] ([place]) NRBC abs 0.02(H) 0.00 - 0.01 K/cumm [facility] ([place]) Blood Venous blood specimen / Unknown 08/07/2024 6:10 PM CDT 08/07/2024 6:14 PM CDT Arnie Suazo MD LAB BLOOD ORDERABLES Final Result [facility] ([place] [employer] [place] [address] * Magnesium (08/07/2024 6:10 PM CDT) Magnesium 2.2 1.4 - 2.5 mg/dL Blood 08/07/2024 6:10 PM CDT 08/07/2024 6:14 PM CDT Arnie Suazo MD LAB BLOOD ORDERABLES Final Result Performing Organization Address City/[facility] Co de Phone Number [facility] ([place] [place] [address] * (ABNORMAL) Lipid panel (08/07/2024 6:10 PM CDT) Cholesterol 187 30 - 199 mg/dL Comment: Interpretive Data Ages < or = 19 years Acceptable: <170 mg/dL Borderline high: 170-199 mg/dL High: >or= 200 mg/dL Ages > or = 20 years Desirable: <200 mg/dL Borderline high: 200-239 mg/dL High: >or= 240 mg/dL Literature References: 1. Expert Panel on Integrated Guidelines for Cardiovascular Health and Risk Reduction in Children and Adolescents. Pediatrics 2011;128:S213 2. NCEP Expert Panel. Circulation 2004;110:227 Current Interpretive Data was last revised on 2018. Triglycerides 212(H) <=149 mg/dL [facility] ([place]) Comment: Interpretive Data Ages < or = 9 years Acceptable: <75 mg/dL Borderline high: 75-99 mg/dL High: >or= 100 mg/dL Ages 10 to 20 years Acceptable: <90 mg/dL Borderline high: 90-129 mg/dL High: >or= 130 mg/dL Ages > or = 20 years Desirable: <150 mg/dL Borderline high: 150-199 mg/dL High: 200-499 mg/dL Very high: >or= 499 mg/dL Literature References: 1. Expert Panel on Integrated Guidelines for Cardiovascular Health and Risk Reduction in Children and Adolescents. Pediatrics 2011;128:S213 2. NCEP Expert Panel. Circulation 2004;110:227 Current Interpretive Data was last revised on 2018. HDL 38(L) >=40 mg/dL [facility] ([place]) Comment: Interpretive Data Ages < or = 19 years Acceptable: >45 mg/dL Borderline low: 40-45 mg/dL Low: <40 mg/dL Ages > or = 20 years Desirable: >or= 60 mg/dL Low: <40 mg/dL Literature References: 1. Expert Panel on Integrated Guidelines for Cardiovascular Health and Risk Reduction in Children and Adolescents. Pediatrics 2011;128:S213 2. NCEP Expert Panel. Circulation 2004;110:227 Current Interpretive Data was last revised on 2018. LDL, calculated 112 <=129 mg/dL [facility] ([place]) Comment: Interpretive Data Ages < or = 19 years Acceptable: <110 mg/dL Borderline high: 110-129 mg/dL High: >or= 130 mg/dL Ages > or = 20 years Optimal: <100 mg/dL Near optimal: 100-129 mg/dL Borderline high: 130-159 mg/dL High: >160 mg/dL Calculated using the Rigo LDL-C estimating equation. This equation was implemented on 2024. Prior to this date LDL-C was estimated using the Friedewald equation. Literature References: 1. Expert Panel on Integrated Guidelines for Cardiovascular Health and Risk Reduction in Children and Adolescents. Pediatrics 2011;128:S213 2. NCEP Expert Panel. Circulation 2004;110:227 3. Rigo Kelly et al. YUSUF Cardiol. 2020 September 22;5(5):540-548. doi: 10.1001/jamacardio.2020.0013 Current Interpretive Data was last revised on 2024. Non-HDL Cholesterol 149 mg/dL [facility] ([place]) Comment: Interpretive Data Ages < or = 19 years Acceptable: <120 mg/dL Borderline high: 120-144 mg/dL High: >145 mg/dL Ages > or = 20 years When triglycerides are >200 mg/dL, Non-HDL cholesterol is a secondary target of therapy with treatment goals that are 30 mg/dL greater than the LDL cholesterol target. Literature References: 1. Expert Panel on Integrated Guidelines for Cardiovascular Health and Risk Reduction in Children and Adolescents. Pediatrics 2011;128:S213 2. NCEP Expert Panel. Circulation 2004;110:227 Current Interpretive Data was last revised on 2018. Chol/HDL ratio 5 [facility] ([place]) Blood 08/07/2024 6:10 PM CDT 08/07/2024 6:14 PM CDT Arnie Suazo MD LAB BLOOD ORDERABLES Final Result [facility] ([place] Department of Laboratories [place] [id number] * (ABNORMAL) Comprehensive metabolic panel (08/07/2024 6:10 PM CDT) Sodium 135 135 - 145 mmol/L Potassium, pl 4.5 3.3 - 4.9 mmol/L [facility] ([place]) Chloride 99 97 - 110 mmol/L [facility] CO2 22 22 - 32 mmol/L [facility]) Anion gap 14 2 - 15 mmol/L [facility] BUN 8 6 - 25 mg/dL [facility] Creatinine 0.66(L) 0.80 - 1.30 mg/dL [facility] Glucose 127 70 - 199 mg/dL [facility] ([place]) Comment: Interpretive Data Fasting glucose >/= [...] classification and Diagnosis of Diabetes Diabetes Care 2021; 46: S19-S40. Current interpretive data was last revised 2022. Calcium 10.2 8.5 - 10.3 mg/dL [facility]) Bilirubin, total 0.4 0.1 - 1.2 mg/dL [facility]) Protein, pl 8.3 6.5 - 8.5 g/dL [facility]) Albumin 4.7 3.5 - 5.0 g/dL [facility]) Alk phos 85 40 - 130 Units/L [facility] ALT 43 7 - 55 Units/L [facility] AST 29 10 - 50 Units/L [facility] Blood 08/07/2024 6:10 PM CDT 08/07/2024 6:14 PM CDT us Arnie Suazo MD LAB BLOOD ORDERABLES Final Result [facility] ([place] [place] [address] * ECG 12 lead (08/07/2024 5:16 PM CDT) 08/07/2024 5:16 PM CDT Narrative [facility] - 08/08/2024 6:56 AM CDT Vent Rate: 86 bpm RR Interval: 695 msec [place] Interval: 201 msec QRS Duration: 110 msec QT Interval: 360 msec QTC Interval: 403 msec P-R-T [place]: 45 - 51 - 56 degrees IMPRESSION: Baseline artifact, probable SINUS RHYTHM INDETERMINATE AXIS INCOMPLETE RIGHT BUNDLE BRANCH BLOCK [90+ ms QRS DURATION, TERMINAL R IN V1/V2, 40+ ms S IN I/aVL/V4/V5/V6] BORDERLINE ECG NO CHANGE FROM PREVIOUS TRACING NOTED Electronically Signed By: Lencho Jefferson MD us Arnie Suazo MD ECG ORDERABLES Final Resul t [facility] from Last 3 Months Insurance [employer] [place] Advance Directives For more information, please contact: [phone] * Full Code (Latest Code Status on File) Date Activated Date Inactivated Comments 08/07/2024 11:47 PM 08/08/2024 6:12 PM 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
--- OUTSIDE RECORDS SUMMARY | 2024-09-14 17:04 | XMS_ITS | Referral Summary ---
Author Organization [facility] Address [address] [place] [address] Care Team Providers Care Credit Cashier Name Role Phone Tong Monae MD Unavailable [phone] Adriel Shetty MD Unavailable [phone] Sydney Galeana MD Primary Care Provider [phone] Encounters Date Type Department Care Team Description 09/12/2024 6:55 PM CDT - 09/12/2024 7:41 PM CDT Emergency [facility] Emergency Department 1 [place] [address] Higinio Steiner MD Panic attack (Primary Dx) Discharge Disposition: Discharge to home or self care 08/11/2024 9:30 AM CDT Office Visit [facility] [place] [address] [facility] [address] [place] [phone] Sydney Galeana MD Generalized anxiety disorder (Primary Dx); Tobacco use 08/08/2024 Orders Only [facility] Cardiology [address] [place] [address] Maricruz Osman 08/07/2024 5:33 PM CDT - 08/08/2024 2:07 PM CDT Emergency [facility] IMU [address] [place] [address] Arnie Suazo MD Huynh, Kiet T., MD Sinha, Chandni, MD Acute chest pain (Primary Dx); MARCUS (dyspnea on exertion); RBBB Discharge Disposition: Discharge to home or self care from Last 3 Months Allergies No known active allergies Medications cyanocobalamin [...] 08/11/2024 Hypertension 08/08/2024 Acute chest pain 08/07/2024 Social History Tobacco Use Types Packs/Day Years [...] on file 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 Gender Identity Not on file Sexual Orientation [...] 08/11/2024 9:59 AM CDT Plan of Treatment Not on file Procedures Procedure Name Priority Date/Time Associated Diagnosis [...] hs delta 0 ng/L [facility]) Trop T hs interp Insignificant [facility] ([place]) Blood 09/12/2024 7:07 PM CDT 09/12/2024 7:09 PM CDT us Higinio Steiner MD LAB BLOOD ORDERABLES Final Res ult [facility] ([place]) [address] [facility] Department of Laboratories [place], [place] [id number] * Troponin T high-sensitivity series (baseline, 2hr, [...] Final Res ult [facility] ([place]) [address] [facility] [place] [address] * eGFR (09/12/2024 5:20 PM CDT) eGFR [...] Final Res ult [facility] ([place]) [address] [facility] [place] [address] * (ABNORMAL) Differential, auto (09/12/2024 5:20 PM [...] Final Res ult [facility] ([place] [address] [facility] [employer] [place] [address] * (ABNORMAL) CBC with auto differential (09/12/2024 [...] Final Res ult [facility] ([place] 1 [facility] [place] [address] * (ABNORMAL) Comprehensive metabolic panel (09/12/2024 5:20 [...] BLOOD ORDERABLES Final Res ult [facility] [place]) [address] [facility] [place] [address] * XR Chest 1 Vw Portable (if [...] by Jimmie Loredo M.D. CH: Report ID: [id number] Reading Location: [place] [address] Procedure Note Jimmie Loredo Jr., MD - [...] by Jimmie Loredo M.D. CH: Report ID: [id number] Reading Location: [place] [address] Higinio Steiner MD IMG XR PROCEDURES Final Result * ECG 12 lead (09/12/2024 4:41 PM CDT) 09/12/2024 4:41 PM CDT Narrative [facility] - 09/13/2024 6:51 AM CDT Vent Rate: 82 bpm RR Interval: 727 msec SC Interval: 166 msec QRS Duration: 118 msec QT Interval: 341 msec QTC Interval: 380 msec P-R-T Enterprise: 42 - 36 - 56 degrees IMPRESSION: SINUS RHYTHM INCOMPLETE RIGHT BUNDLE BRANCH BLOCK [90+ ms QRS DURATION, TERMINAL R IN V1/V2, 40+ ms S IN I/aVL/V4/V5/V6] BORDERLINE ECG NO CHANGE FROM PREVIOUS TRACING NOTED Electronically Signed By: Lencho Jefferson MD Higinio Steiner MD ECG ORDERABLES Final Result [facility] * TRANSTHORACIC ECHO (TTE) COMPLETE W DOPPLER/CF WO CONTRAST (08/08/2024 11:03 AM CDT) LV EF 65 % CONS SCIMAGE Anatomical Region Laterality Modality Ultrasound 08/08/2024 10:1 4 AM CDT Narrative 08/08/2024 12:32 PM CDT [address] [place] [address] Echocardiogram Report Patient Name: DAVID MÉNDEZ : 1980 Study Date: 08/08/2024 10:14:51 AM Gender: M Tech: AA Location: [id number] Ref Provider: ARNIE SUAZO Height(Cm): BSA: Weight(Kg): [...] Procedure Note Lencho Jefferson MD - 08/08/[address] [address] Echocardiogram Report Patient Name: DAVID MÉNDEZ : 1980 Study Date: 08/08/2024 10:14:51 AM Gender: M Tech: AA Location: [id number] Ref Provider: ARNIE SUAZO Height(Cm): BSA: Weight(Kg): [...] BLOOD ORDERABLES Final Resu lt [facility] ([place] [address] [facility] Department [place] [address] * (ABNORMAL) Differential, auto (08/08/2024 10:56 AM [...] Final Resu lt [facility] ([place] [address] [facility] Department [place] [address] * (ABNORMAL) CBC with auto differential (08/08/2024 [...] ([place]) MCHC 33.1 32.3 - 35.7 g/dL [facility] ([place]) RDW CV 13.8 11.1 - 14.9 % [facility] ([place]) RDW SD 44.4 35.7 - 48.1 fL [facility] ([place]) NRBC abs 0.00 0.00 - 0.01 K/cumm [facility] Blood 08/08/2024 10:5 6 AM CDT 08/08/2024 11:01 AM CDT Michael Conte MD LAB BLOOD ORDERABLES Final Resu lt [facility] ([place] 1 [facility] [place] [address] * Magnesium (08/08/2024 10:56 AM CDT) Magnesium 2.3 1.4 - 2.5 mg/dL Blood 08/08/2024 10:5 6 AM CDT 08/08/2024 11:01 AM CDT Michael Conte MD LAB BLOOD ORDERABLES Final Resu lt Performing Organization Address City/[facility]/ZIP Co de Phone Number [facility] ([place] [address] [place] [address] * (ABNORMAL) Hemoglobin A1c (08/08/2024 10:56 AM CDT) Hgb A1C 7.1(H) 4.0 - 5.6 % Estimated Average Glucose 157 mg/dL [facility] Comment: The ADA recommends reporting an estimated Average Glucose (eAG) with all Hemoglobin A1c results using the equation derived from a study of 507 normal and diabetic adults. Minority populations were underrepresented and children were not included. (Diabetes Care 31:3805-8124, 2008). The eAG is not equivalent to a fasting glucose. Blood 08/08/2024 10:5 6 AM CDT 08/08/2024 11:01 AM CDT Zhane Daniel NP LAB BLOOD ORDERABLE S Final Result [facility] ([place] [address] [facility] Department [place] [address] * (ABNORMAL) Comprehensive metabolic panel (08/08/2024 10:56 AM CDT) Sodium 137 135 - 145 mmol/L Potassium, pl 4.4 3.3 - 4.9 mmol/L [facility] ([place]) Chloride 102 97 - 110 mmol/L [facility]) CO2 22 22 - 32 mmol/L [facility] ([place]) Anion gap 13 2 - 15 mmol/L [facility] ([place]) BUN 11 6 - 25 mg/dL [facility] ([place]) Creatinine 0.75(L) 0.80 - 1.30 mg/dL [facility] ([place]) [...] BLOOD ORDERABLES Final Resu lt [facility] ([place] [address] [facility] Department [place] [address] * NM MPI SPECT (Rest and/or Stress) [...] Electronically signed by Arnie Goldman M.D. LB: ELISA Report ID: [id number] Reading Location: [id number] Procedure Note Arnie Goldman MD - 08/08/2024 [...] Electronically signed by Arnie Goldman M.D. LB: ELISA Report ID: [id number] Reading Location: [id number] Zhane Daniel SUPERVISOR ELECTRONICS TESTING IMG NM PROCEDURES F inal Result * Stress Test for Myocardial Perfusion (08/08/2024 10:12 AM CDT) Anatomical Region Laterality Modality Nuclear Medicine 08/08/2024 8:10 AM CDT Narrative 08/08/2024 10:25 AM CDT [address] [place] [address] [facility] Report Patient Name: DAVID MÉNDEZ : 1980 Study Date: 08/08/2024 8:10:00 AM Gender: M Tech: maricruz osman Location: [id number] Ref Provider: FREDY ZHANE Height(Cm): 173 BSA: 3.34 Weight(Kg): 233 Heart Rate: 150 Order Provider: FREDY ZHANE PROCEDURES: Pharmacologic SPECT Report.: Myocardial perfusion imaging [...] Procedure Note Darby Caal MD - 08/08/[address] [place] [address] [facility] Report Patient Name: DAVID MÉNDEZ : 1980 Study Date: 08/08/2024 8:10:00 AM Gender: M Tech: maricruz osman Location: [id number] Ref Provider: ZHANE DANIEL Height(Cm): 173 BSA: [...] Dr Darby Caal 08/08/2024 10:21:57 AM CDT Zhane Daniel NP CV STRESS PROCEDURE S Final Result * Troponin T high-sensitivity 6-hour (08/08/2024 12:35 AM CDT) Trop T hs 11 <=22 ng/L Comment: Interpretive Data For further hscTnT resources including the diagnostic algorithm and an aid in interpretation, copy and paste this link: https://nrl.[employer].org/show/hsTrop Current Interpretive Data last revised 2020. Trop T hs delta 3 ng/L [facility] ([place]) Trop T hs interp Insignificant [facility] ([place]) Blood 08/08/2024 12:3 5 AM CDT 08/08/2024 12:39 AM CDT Arnie Suazo MD LAB BLOOD ORDERABLES Final Result [facility] ([place] [address] [facility] [place] [address] * Troponin T high-sensitivity 4-hour (08/07/2024 10:33 PM CDT) Trop T hs 8 <=22 ng/L Comment: Interpretive Data For further hscTnT resources including the diagnostic algorithm and an aid in interpretation, copy and paste this link: https://nrl.[employer].org/show/hsTrop Current Interpretive Data last revised 2020. Trop T hs delta 0 ng/L [facility] ([place]) Trop T hs interp Insignificant [facility] ([place]) Blood 08/07/2024 10:3 3 PM CDT 08/07/2024 10:42 PM CDT Arnie Suazo MD LAB BLOOD ORDERABLES Final Result [facility] ([place] [address] [facility] [place] [address] * XR CHEST 1 VIEW PORTABLE (08/07/2024 [...] Gray Bravo M.D. MM: MM Report ID: [id number] Reading Location: [place] [address] Procedure Note Gray Bravo MD - 08/07/2024 [...] Gray Bravo M.D. MM: MM Report ID: [id number] Reading Location: [id number] Arnie Suazo MD IMG XR PROCEDURES Final [...] MD LAB BLOOD ORDERABLES Final Result [facility] [address] [facility] Department [place] [address] * eGFR (08/07/2024 6:10 PM CDT) eGFR [...] LAB BLOOD ORDERABLES Final Result [facility] ([place] [address] [facility] Department [place] [address] * (ABNORMAL) Differential, auto (08/07/2024 6:10 PM CDT) Neutrophil abs 8.5(H) 1.5 - 6.5 K/cumm Imm gran abs 0.0 0.0 - 0.1 K/cumm [facility] ([place]) Lymphocyte abs 2.7 0.8 - 3.3 K/cumm [facility] ([place]) Monocyte abs 0.9(H) 0.2 - 0.8 K/cumm [facility] ([place]) Eosinophil abs 0.1 0.0 - 0.5 K/cumm [facility] ([place]) Basophil abs 0.1 0.0 - 0.1 K/cumm [facility] ([place]) Neutrophil pct 69.0 % [facility] ([place]) Comment: Interpretive Data Percent cell count reference [...] revised on 2017. Basophil pct 0.6 % [facility] ([place]) Comment: Interpretive Data Percent cell count reference ranges are not reported, since discordance with absolute values may lead to misinterpretation of CBC data. Current Interpretive Data was last revised on 2017. Blood 08/07/2024 6:10 PM CDT 08/07/2024 6:14 PM CDT us Arnie Suazo MD LAB BLOOD ORDERABLES Final Result [facility] ([place] [address] [facility] Department [place] [address] * Pro B-type natriuretic peptide (08/07/2024 6:10 [...] Suazo MD LAB BLOOD ORDERABLES Final Result [facility] ([place] [address] [facility] Department [place] [address] * (ABNORMAL) CBC with auto differential (08/07/2024 [...] ([place]) MCHC 34.0 32.3 - 35.7 g/dL [facility] ([place]) RDW CV 13.4 11.1 - 14.9 % [facility] ([place]) RDW SD 42.5 35.7 - 48.1 fL [facility] ([place]) NRBC abs 0.02(H) 0.00 - 0.01 K/cumm [facility] ([place]) Blood Venous blood specimen / Unknown 08/07/2024 6:10 PM CDT 08/07/2024 6:14 PM CDT Arnie Suazo MD LAB BLOOD ORDERABLES Final Result [facility] ([place] 1 [facility] [place] [address] * Magnesium (08/07/2024 6:10 PM CDT) Magnesium 2.2 1.4 - 2.5 mg/dL Blood 08/07/2024 6:10 PM CDT 08/07/2024 6:14 PM CDT us Arnie Suazo MD LAB BLOOD ORDERABLES Final Result Performing Organization Address City/[facility]/ZIP Co de Phone Number [facility] ([place] 1 [facility] [place] [address] * (ABNORMAL) Lipid panel (08/07/2024 6:10 PM [...] 3. Rigo Kelly et al. YUSUF Cardiol. 2019September 22;5(5):540-548. doi: [email or web address] Current Interpretive Data was [...] last revised on 2018. Chol/HDL ratio 5 [facility] ([place]) Blood 08/07/2024 6:10 PM CDT 08/07/2024 6:14 PM CDT us Arnie Suazo MD LAB BLOOD ORDERABLES Final Result [facility] ([place] [address] [facility] Department [place] [address] * (ABNORMAL) Comprehensive metabolic panel (08/07/2024 6:10 PM CDT) Sodium 135 135 - 145 mmol/L Potassium, pl 4.5 3.3 - 4.9 mmol/L [facility] ([place]) Chloride 99 97 - 110 mmol/L [facility] ([place]) CO2 22 22 - 32 mmol/L [facility] ([place]) Anion gap 14 2 - 15 mmol/L [facility] ([place]) BUN 8 6 - 25 mg/dL [facility] ([place]) Creatinine 0.66(L) 0.80 - 1.30 mg/dL [facility] ([place]) Glucose 127 70 - 199 mg/dL [facility] ([place]) [...] BLOOD ORDERABLES Final Result Performing Organization Address [facility] Co de Phone Number [facility] ([place] 1 [facility] [place] [address] * ECG 12 lead (08/07/2024 5:16 PM CDT) 08/07/2024 5:16 PM CDT Narrative [facility] - 08/08/2024 6:56 AM CDT Vent Rate: 86 bpm RR Interval: 695 msec SC Interval: 201 msec QRS Duration: 110 msec QT Interval: 360 msec QTC Interval: 403 msec P-R-T Enterprise: 45 - 51 - 56 degrees IMPRESSION: Baseline artifact, probable SINUS RHYTHM INDETERMINATE AXIS INCOMPLETE RIGHT BUNDLE BRANCH BLOCK [90+ ms QRS DURATION, TERMINAL R IN V1/V2, 40+ ms S IN I/aVL/V4/V5/V6] BORDERLINE ECG NO CHANGE FROM PREVIOUS TRACING NOTED Electronically Signed By: Lencho Jefferson MD Arnie Suazo MD ECG ORDERABLES Final Resul t Performing Organization Address City/[facility] Co de Phone Number [facility] [employer] [facility] from Last 3 Months Insurance [employer] [facility] Advance Directives For more information, please contact: [phone] * Full Code (Latest Code Status on File) Date Activated Date Inactivated Comments 08/07/2024 11:47 PM 08/08/2024 6:12 PM Care Teams Credit Cashier Relationship Specialty Start Date End Date Sydney Galeana MD [address] [place] [address] [address] [place] [address] PCP - General Family Medicine 08/11/24 Tong Monae MD [address] [facility] [address] [place] [address] Consulting Physician Family Medicine 08/08/24 Adriel Shetty MD [address] [place] [address] Consulting Physician Family Practice 08/08/24
== END 2024-09-14 16:38 | disposition home or self-care (01) ==
PROVIDERS: Emergency Medicine; Emergency Provider Student in an Organized Health Care Education/Training Program
DX: R07.9 Chest pain, unspecified (principal); I45.10 Unspecified right bundle-branch block; I10 Essential (primary) hypertension; M54.12 Radiculopathy, cervical region
CPT/HCPCS: 36415; 71046; 80053; 83690; 84484; 85025; 85610; 85730; 93005; 99284; A9270